=== PATIENT | female | born 1965 | race Caucasian/White ===

== ENCOUNTER → 2018-07-01 09:32 | Outpatient (CLI) | payer OTHER, SELFPAY ==
[2018-07-01 11:38] LABS: T4 14.2 ug/dL (4.5-12.5)
[2018-07-01 21:40] LABS: T3, Total 154 ng/dl (97-169)
== END ==
PROVIDERS: PCP Family Medicine; Visit Provider Family Medicine
DX: E03.9 Hypothyroidism, unspecified (principal)
CPT/HCPCS: 36415; 84436; 84480

== ENCOUNTER 2018-12-14 05:19 | Emergency (ER) | payer OTHER, SELFPAY ==
[2018-12-14 05:22] VITALS: BP 141/74; PULSE 75; RESP 20; TEMP 36.7; O2SAT 97
--- NOTE | 2018-12-14 05:41 | ED.GENADUL_ITS ---
Discharge Plan Disposition Patient Disposition: HOME Condition: Good Discharge Details Chief Complaint: RespSymp Clinical Impression: Migraine headache, RAD (reactive airway disease), Bronchitis Primary Care Provider: Donald Allen ED Provider: Bruno Carlson [place] Meds and New Rx's Prescriptions: New ProAir HFA 90 mcg/actuation HFA aerosol inhaler 2 puff IH Q4H PRN (Reason: shortness of breath or wheezing) Qty: 8.5 RF: 0 Continued ibuprofen 200 mg tablet 600 mg PO TID PRN (Reason: pain) Qty: 90 RF: 4 oxycodone 10 mg tablet 10 mg PO Q6H PRN MDD 40 mg 30 Days Qty: 110 RF: 0 doxycycline hyclate 100 mg tablet 100 mg PO BID PRN (Reason: bronchitis) Qty: 20 RF: 0 promethazine-codeine 6.25-10 mg/5 mL syrup 5 ml PO Q4H PRN Qty: 118 RF: 1 triamcinolone acetonide 15 GM cream 1 kait Topical BID RF: 0 Excedrin Extra Strength 1 EACH tablet 1 tab PO PRN RF: 0 Narcan 4 MG spray,non-aerosol 4 mg NS PRN Qty: 2 RF: 0 benzonatate 100 MG capsule 1 - 2 cap PO TID PRNQty: 30 RF: 1 levothyroxine 125 MCG tablet 125 mcg PO DAILY Qty: 90 RF: 4 diazepam [Valium] 2 mg tablet 1 mg PO TID Qty: 86 RF: 0 promethazine 25 mg tablet 25 mg PO Q6H PRN (Reason: nausea and vomiting) Qty: 30 RF: 3 baclofen 20 mg tablet 20 mg PO TID Qty: 90 RF: 3 acetaminophen [Tylenol] 325 MG tablet 650 mg PO PRN PRNRF: 0 Discharge Instructions Instructions: Acute Bronchitis (ED), Reactive Airways Disease (ED) Additional Instructions: Your chest x-ray is clear, there is no evidence of pneumonia. You should finish the doxycycline that has been started. May continue to use cough medicine as needed. Try the inhaler with spacer for cough and shortness of breath every 4-6 hours. Rest today and drink plenty of fluids to help with your headache. Follow-up with primary care next week for recheck. Return to ED for high fever, increasing difficulty breathing, chest pain, neurologic changes, persistent vomiting. Referrals: Donald Allen MD [Primary Care Provider] - Medical Decision Making Patient presenting with complaints of cough and shortness of breath as well as a migraine headache with nausea and vomiting. She has multiple allergies. She reports not being in an ER for migraines previously. Has pain medication at home that she typically uses. She has some wheezing scattered throughout her lungs. She has some rhonchi in the bases. She is a smoker. We will give DuoNeb treatment for her shortness of breath and cough. Will obtain chest x-ray to evaluate for pneumonia. In regards to her headache will place IV and give a liter of LR as well as Compazine which hopefully will help with a headache in the nausea and vomiting. She denies having any chest pain. She denies any abdominal pain. No labs at this point. Patient reports some relief with the DuoNeb. The wheezing that have been present is resolved. Still a few rhonchi. She is able to take deep breaths easier. Her chest x-ray per my review as well as preliminary radiology read is negative. She will finish the doxycycline she had been started on. We will give her an albuterol inhaler with spacer to use every 4-6 hours for cough and shortness of breath. We will hold off on steroids at this point. She does not have a previous history of asthma or COPD, although she is a smoker. Patient's nausea and vomiting has resolved. She still complains of a headache, however, she is no longer holding her head nor does she have her eyes shielded. Reports that she would take her oxycodone that she has at home if she was at home. I did review her prescriptions and she does indeed get oxycodone prescrib ed. We will give her a dose here. We will plan on discharge home to follow-up with her primary care next week. Return to ED for increasing shortness of breath, fever, chest pain, neurologic changes. HPI General Mode of arrival: ambulatory . Date/Time Provider Initiated Documentation: 12/14/18 05:33 . Limitations to Documentation: no limitations . Information obtained by: patient . HPI Narrative: Patient here with complaints of cough and shortness of breath as well as migraine headache with nausea and vomiting. Patient reports becoming ill over a week ago with congestion and cough. Seen by primary care on of last week and started on doxycycline. Reports that she feels like she is getting worse in terms of breathing. She feels short of breath and continues to have cough. She denies having chest pain. She denies having fever at any time. She has no body aches. She has chronic back pain. She has migraine headaches which she developed last night with associated dizziness, photophobia and nausea and vomiting, typical for her. She has no other neurologic complaints. She has no abdominal pain. She reports vomiting about 6 or 7 times since last night. She had difficulty sleeping because of the cough and shortness of breath. Related Data Home Medications Medication Instructions Recorded Confirmed Excedrin Extra Strength 1 tab PO PRN 02/28/13 12/14/18 triamcinolone acetonide 1 kait TOPICAL BID 02/28/13 12/14/18 acetaminophen [Tylenol] 650 mg PO PRN PRN 04/20/16 12/14/18 Narcan 4 mg NS PRN #2 spray 05/27/17 12/14/18 benzonatate 1 - 2 cap PO TID PRN #30 tab-cap 02/01/18 12/14/18 levothyroxine 125 mcg PO DAILY #90 tab-cap 06/02/18 12/14/18 ibuprofen 200 mg tablet 600 mg PO TID PRN #90 tab 09/27/18 12/14/18 oxycodone 10 mg tablet 10 mg PO Q6H PRN 30 Days #110 09/28/18 12/14/18 tab-cap MDD 40 mg diazepam 2 mg tablet 1 mg PO TID #86 tab 10/21/18 12/14/18 promethazine 25 mg tablet 25 mg PO Q6H PRN #30 tab 11/16/18 12/14/18 baclofen 20 mg tablet 20 mg PO TID #90 tab-cap 12/05/18 12/14/18 doxycycline hyclate 100 mg tablet 100 mg PO BID PRN #20 tab 12/08/18 12/14/18 promethazine 6.25 mg-codeine 10 5 ml PO Q4H PRN #118 ml 12/08/18 12/14/18 mg/5 mL syrup albuterol sulfate [ProAir HFA] 2 puff IH Q4H PRN #8.5 gm 12/14/18 Previous Rx's Medication Instructions Recorded levothyroxine 125 mcg PO DAILY #90 tab-cap 06/02/18 ibuprofen 200 mg tablet 600 mg PO TID PRN #90 tab 09/27/18 oxycodone 10 mg tablet 10 mg PO Q6H PRN 30 Days #110 09/28/18 tab-cap MDD 40 mg diazepam 2 mg tablet 1 mg PO TID #86 tab 10/21/18 promethazine 25 mg tablet 25 mg PO Q6H PRN #30 tab 11/16/18 baclofen 20 mg tablet 20 mg PO TID #90 tab-cap 12/05/18 doxycycline hyclate 100 mg tablet 100 mg PO BID PRN #20 tab 12/08/18 promethazine 6.25 mg-codeine 10 5 ml PO Q4H PRN #118 ml 12/08/18 mg/5 mL syrup albuterol sulfate [ProAir HFA] 2 puff IH Q4H PRN #8.5 gm 12/14/18 Allergies Allergy/AdvReac Type Severity Reaction Status Date / Time Penicillins Allergy Severe Anaphylaxsi Unverified 12/14/18 05:27 s adhesive Allergy Intermediate CAUSES Unverified 12/14/18 05:27 BLISTERS Sulfa (Sulfonamide Allergy Unknown GI UPSET; Unverified 12/14/18 05:27 Antibiotics) RASH levofloxacin [From Levaquin] Allergy Other (See Unverified 12/14/18 05:34 Comment) duloxetine AdvReac Severe INCREASED Unverified 12/14/18 05:27 DEPRESSION; INCREASED ANXIETY paroxetine AdvReac Severe Extreme Unverified 12/14/18 05:27 irritability diphenhydramine AdvReac Intermediate MAKES Unverified 12/14/18 05:27 HEART RACE doxylamine AdvReac Intermediate RESTLESSNES Unverified 12/14/18 05:27 S pseudoephedrine AdvReac Intermediate RESTLESSNES Unverified 12/14/18 05:27 S codeine AdvReac Unknown URTICARIA; Unverified 12/14/18 05:27 TACHYCARDIA ketorolac AdvReac Unknown Unverified 12/14/18 05:27 dextromethorphan AdvReac RESTLESSNES Unverified 12/14/18 05:27 S General Stated Complaint: RespSymp ZEV: 3 Review of Systems Constitutional Denies body ache(s), Denies chills, Reports fatigue, Denies fever(s), Reports headache(s), Reports malaise, Denies poor appetite and Denies weakness Eyes Denies change in vision, Denies eye discharge, Denies loss of vision, Denies eye pain and Reports photophobia ENT Reports dizziness, Denies otalgia, Reports headache(s), Reports hoarseness, Reports nasal congestion, Denies neck pain, Reports sinus pressure and Denies sore throat Cardiovascular Denies chest pain, Denies diaphoresis, Denies syncope, Denies edema, Denies lightheadedness and Reports dyspnea Respiratory Reports chest congestion, Reports cough and Reports dyspnea Gastrointestinal Denies abdominal pain, Denies diarrhea, Reports nausea and Reports vomiting Genitourinary Denies dysuria and Denies pelvic pain Musculoskeletal Denies abnormal gait, Reports back pain, Denies myalgias, Denies neck pain and Denies numbness Integumentary/Breasts Denies rash Neurologic Denies abnormal speech, Denies abnormal gait, Denies confusion, Reports dizziness, Denies syncope, Reports headache(s), Denies focal weakness, Denies loss of vision, Denies numbness, Denies paresthesias and Denies weakness Psychiatric Denies confusion Endocrine Reports fatigue [facility] Medical History Panic disorder (Chronic 02/19/17) Kidney stone (Inactive) Hypothyroidism (Chronic) Depressive disorder (Chronic) Chronic pain syndrome (Chronic) Migraine (Chronic) Palpitations (Chronic) Surgical History Appendectomy (Inactive) section (Inactive) Hysterectomy, Laproscopic (Inactive ~06/2008) Oophrectomy, Both (Inactive ~10/2008) Tonsillectomy (Inactive) Social History Smoking/Tobacco Use Status: Current every day Exam Const General: uncomfortable Orientation: alert and oriented x3 HENMT Head: normocephalic and atraumatic Ears: external ears normal and TM's normal bilaterally General nose exam: no nasal discharge Mouth: oropharynx normal and moist mucous membranes Throat: posterior oropharynx normal Eyes Pupils: PERRL EOM: EOM intact bilaterally Neck Neck: trachea midline and supple Resp Effort & Inspection: normal respiratory effort and not tachypneic Auscultation: rhonchi lower bilaterally and wheezes scattered wheezes Cardio Rate: regular rate Rhythm: regular rhythm Heart Sounds: S1 normal and S2 normal Pulses: radial pulses present Skin General skin exam: no rashes or lesions noted Neuro General: alert, oriented x3, gait normal, moves all extremities, no focal motor deficits and CN's II-XI intact bilaterally Extrem General: normal to inspection and full ROM Course Vital Signs Temperature 98.1 F 12/14/18 05:22 Pulse 75 12/14/18 05:22 Respiratory Rate 20 12/14/18 05:22 Blood Pressure 141/74 H 12/14/18 05:22 Pulse Oximetry 97 12/14/18 05:22 Temperature 98.1 F 12/14/18 05:22 Temperature Source Skin 12/14/18 05:22 Pulse 75 12/14/18 05:22 Respiratory Rate 20 12/14/18 05:22 Respiratory Effort 12/14/18 05:37 Respiratory Depth Normal 12/14/18 05:37 Blood Pressure 141/74 H 12/14/18 05:22 Blood Pressure Position Sitting 12/14/18 05:22 Pulse Oximetry 97 12/14/18 05:22 Oxygen Delivery Method Room Air 12/14/18 05:22 Oxygen Flow Rate 0 12/14/18 05:22 Pain Level 8 12/14/18 05:22
[2018-12-14] MEDS: Prochlorperazine 10 MG/2 ML VIAL IVP (05:54)
[2018-12-14] MEDS: Lactated Ringers 1,000 ML 1000 ML IV (05:55)
[2018-12-14] MEDS: Albuterol/Ipratropium 3 ML UPD VIAL UPD (05:57)
--- NOTE | 2018-12-14 06:20 | DI.RAD_ITS ---
SYMPTOM/DIAGNOSIS: COUGH,SOB PA AND LATERAL CHEST: The heart is normal in size. The lungs are clear. The mediastinal structures and pleura appear intact. CONCLUSION: Normal chest.
--- NOTE | 2018-12-14 06:27 | DI.VRAD_ITS ---
EXAM: XR Chest, 2 Views EXAM DATE/TIME: 12/14/2018 5:52 AM CLINICAL HISTORY: 53 years old, female; Signs and symptoms; Cough and shortness of breath; Patient HX: Cough and SOB for a week and a half. Treated with antibiotics but not any better. TECHNIQUE: XR of the chest, 2 views. COMPARISON: CR CHEST 2 VIEWS PA,LAT 12/04/2016 12:50 PM FINDINGS: Lungs: Unremarkable. No consolidation. Pleural space: Unremarkable. No pleural effusion. No pneumothorax. Heart/Mediastinum: Unremarkable. No cardiomegaly. Bones/joints: Unremarkable. IMPRESSION: No acute findings. Dictated and Authenticated by: Carmine Gonzales MD. Ordering:BERENICE Carr MD
[2018-12-14 06:29] VITALS: BP 120/60; PULSE 72; RESP 18; TEMP 37; O2SAT 99
[2018-12-14] MEDS: Albuterol HFA 8 GM 60 PUFF INH IH (06:52)
[2018-12-14] MEDS: oxyCODONE 10 MG TAB PO (06:52)
== END 2018-12-14 07:04 | disposition home or self-care (01) ==
PROVIDERS: Emergency Provider Emergency Medicine; PCP Family Medicine
DX: G43.909 Migraine, unspecified, not intractable, without status migrainosus (principal); J45.909 Unspecified asthma, uncomplicated
CPT/HCPCS: 96361; 96374; 99284; 71046; J0780; J7620

== ENCOUNTER 2018-12-18 18:41 | Emergency (ER) | payer OTHER, SELFPAY ==
[2018-12-18] VITALS (17 sets, daily range): BP systolic 126–143; BP diastolic 69–84; PULSE 67–90; RESP 13–24; TEMP 37–37.2; O2SAT 91–98
--- NOTE | 2018-12-18 19:14 | ED.GENADUL_ITS ---
Discharge Plan Disposition Patient Disposition: HOME Condition: Improving Discharge Details Chief Complaint: Palpitatns Clinical Impression: Palpitations Primary Care Provider: Donald Allen ED Provider: Carmine Dnun Home Meds and New Rx's Prescriptions: New dexamethasone [Decadron] 4 mg tablet 8 mg PO DAILY AM Qty: 4 RF: 0 No Action ibuprofen 200 mg tablet 600 mg PO TID PRN (Reason: pain) Qty: 90 RF: 4 promethazine-codeine 6.25-10 mg/5 mL syrup See Rx Instructions PO Q4H PRN Qty: 180 RF: 1 oxycodone 10 mg tablet 10 mg PO Q6H PRN MDD 40 mg Qty: 107 RF: 0 Excedrin Extra Strength 1 EACH tablet 1 tab PO PRN RF: 0 benzonatate 100 MG capsule 1 - 2 cap PO TID PRNQty: 30 RF: 1 levothyroxine 125 MCG tablet 125 mcg PO DAILY Qty: 90 RF: 4 diazepam [Valium] 2 mg tablet 1 mg PO TID Qty: 86 RF: 0 promethazine 25 mg tablet 25 mg PO Q6H PRN (Reason: nausea and vomiting) Qty: 30 RF: 3 acetaminophen [Tylenol] 325 MG tablet 650 mg PO PRN PRNRF: 0 ProAir HFA 90 mcg/actuation HFA aerosol inhaler 2 puff IH Q4H PRN (Reason: shortness of breath or wheezing) Qty: 8.5 RF: 0 Discharge Instructions Instructions: Palpitations (ED) Additional Instructions: 1. Drink plenty of fluids. 2. Continue all medications as prescribed. 3. Acetaminophen 1000mg every 4 hours (up to 5 time a day) and/or ibuprofen 600mg every 6 hours as needed for fever or pain. 4. Decadron 8 mg once a day for 2 days starting tomorrow 5. Ranitidine 300 mg at bedtime.. Mylanta 30 cc every 6 hours as needed. Return to the Emergency Department (ED) if your condition worsens, does not improve as expected, or for ANY other concerns. Specifically, return if you have new or uncontrolled pain, worsening fever, difficulty breathing, vomiting, or are unable to drink fluids. Referrals: Donald Allen MD [Primary Care Provider] - Medical Decision Making 53-year-old with a recent management of bronchitis resents after developing palpitations and presyncope after using albuterol. Reports recurrent difficulty with albuterol since her discharge from the emergency department here, sliding episodes of palpitations/anxiety. In no distress on arrival with occasional PVCs on telemetry. Normal exam except for mild epigastric tenderness. Epigastric outpatient subjectively worsens dyspnea. Clinically improved after receiving oral antacids and oral Decadron. Discharged with a prescription for Decadron and a plan for regular oral antacid use and minimal albuterol use. Given usual and customary return instructions prior to discharge. Medical Records Medical records reviewed: Yes I reviewed the patient's medical records. ECG Data Attestation: I personally reviewed and interpreted this ECG (s) as follows: Prior ECG tracings: available for review Interpretation: rhythm strip w nl NSR, occational pvcs/ HPI General Mode of arrival: ambulatory . Date/Time Provider Initiated Documentation: 12/18/18 19:10 . Limitations to Documentation: no limitations . Information obtained by: patient and family . HPI Narrative: 53-year-old woman with a history of renal colic, hypothyroidism, depression, chronic pain syndrome, and palpitations. Recently evaluated here for dyspnea and diagnosed with bronchitis. Evaluation management included negative chest xr and treatment with albuterol. She notes that since her discharge, she has been poorly tolerating albuterol with episodes of palpitations/anxiety associated with its use. She presents this evening after having an episode of palpitations/br adycardia associated with using 2 puffs of albuterol. On arrival, she is clinically improved with resolution of palpitations and notes mild improvement in her breathing. She denies fever/chills, significant chest pain, epigastric pain, reflux, generalized abdominal pain. She has had no recent change in bowel habits, melena, hematochezia. She denies urinary symptoms. She has had no atypical lower extremity pain or swelling and denies a history of VTE Related Data Home Medications Medication Instructions Recorded Confirmed Excedrin Extra Strength 1 tab PO PRN 02/28/13 12/18/18 acetaminophen [Tylenol] 650 mg PO PRN PRN 04/20/16 12/18/18 benzonatate 1 - 2 cap PO TID PRN #30 tab-cap 02/01/18 12/18/18 levothyroxine 125 mcg PO DAILY #90 tab-cap 06/02/18 12/18/18 ibuprofen 200 mg tablet 600 mg PO TID PRN #90 tab 09/27/18 12/18/18 diazepam 2 mg tablet 1 mg PO TID #86 tab 10/21/18 12/18/18 promethazine 25 mg tablet 25 mg PO Q6H PRN #30 tab 11/16/18 12/18/18 albuterol sulfate [ProAir HFA] 2 puff IH Q4H PRN #8.5 gm 12/14/18 12/18/18 oxycodone 10 mg tablet 10 mg PO Q6H PRN #107 tab-cap MDD 12/16/18 12/18/18 40 mg promethazine 6.25 mg-codeine 10 See Rx Instructions PO Q4H PRN 12/16/18 12/18/18 mg/5 mL syrup #180 ml dexamethasone [Decadron] 8 mg PO DAILY AM #4 tab 12/18/18 Previous Rx's Medication Instructions Recorded levothyroxine 125 mcg PO DAILY #90 tab-cap 06/02/18 ibuprofen 200 mg tablet 600 mg PO TID PRN #90 tab 09/27/18 diazepam 2 mg tablet 1 mg PO TID #86 tab 10/21/18 promethazine 25 mg tablet 25 mg PO Q6H PRN #30 tab 11/16/18 albuterol sulfate [ProAir HFA] 2 puff IH Q4H PRN #8.5 gm 12/14/18 oxycodone 10 mg tablet 10 mg PO Q6H PRN #107 tab-cap MDD 12/16/18 40 mg promethazine 6.25 mg-codeine 10 See Rx Instructions PO Q4H PRN 12/16/18 mg/5 mL syrup #180 ml dexamethasone [Decadron] 8 mg PO DAILY AM #4 tab 12/18/18 Allergies Allergy/AdvReac Type Severity Reaction Status Date / Time Penicillins Allergy Severe Anaphylaxsi Unverified 12/18/18 18:54 s adhesive Allergy Intermediate CAUSES Unverified 12/18/18 18:54 BLISTERS Sulfa (Sulfonamide Allergy Unknown GI UPSET; Unverified 12/18/18 18:54 Antibiotics) RASH levofloxacin [From Levaquin] Allergy Other (See Unverified 12/18/18 18:54 Comment) duloxetine AdvReac Severe INCREASED Unverified 12/18/18 18:54 DEPRESSION; INCREASED ANXIETY paroxetine AdvReac Severe Extreme Unverified 12/18/18 18:54 irritability albuterol AdvReac Intermediate anxiety/heart Unverified 12/18/18 18:54 racing diphenhydramine AdvReac Intermediate MAKES Unverified 12/18/18 18:54 HEART RACE doxylamine AdvReac Intermediate RESTLESSNES Unverified 12/18/18 18:54 S pseudoephedrine AdvReac Intermediate RESTLESSNES Unverified 12/18/18 18:54 S codeine AdvReac Unknown URTICARIA; Unverified 12/18/18 18:54 TACHYCARDIA ketorolac AdvReac Unknown Unverified 12/18/18 18:54 dextromethorphan AdvReac RESTLESSNES Unverified 12/18/18 18:54 S General Stated Complaint: Palpitatns ZEV: 2 Review of Systems Constitutional Denies chills, Denies fever(s), Denies headache(s) and Denies weakness Eyes Denies change in vision ENT Denies headache(s), Denies neck pain, Denies sore throat and Denies throat swelling Cardiovascular Denies chest pain, Denies diaphoresis, Denies leg edema, Reports palpitations and Reports dyspnea Respiratory Denies cough and Reports dyspnea Gastrointestinal Denies abdominal pain, Denies melena, Denies nausea and Denies vomiting Genitourinary Denies urinary frequency, Denies difficulty voiding, Denies dysuria and Denies flank pain Musculoskeletal Denies back pain, Denies myalgias, Denies neck pain and Denies numbness Integumentary/Breasts Denies rash and Denies wounds Neurologic Denies confusion, Denies headache(s), Denies focal weakness, Denies numbness and Denies weakness Psychiatric Denies confusion Endocrine Reports palpitations Hematologic/Lymphatic Denies easy bleeding and Denies easy bruising Allergic/Immunologic Denies throat swelling [facility] Medical History Panic disorder (Chronic 02/19/17) Kidney stone (Inactive) Hypothyroidism (Chronic) Depressive disorder (Chronic) Chronic pain syndrome (Chronic) Palpitations (Chronic) Surgical History Appendectomy (Inactive) section (Inactive) Hysterectomy, Laproscopic (Inactive ~06/2008) Oophrectomy, Both (Inactive ~10/2008) Tonsillectomy (Inactive) Social History Smoking/Tobacco Use Status: Current every day Exam Narrative Exam Narrative: Nursing note and vital signs have been reviewed and noted. GENERAL: alert, active, no acute distress, well -hydrated, well-nourished HEENT: atraumatic/normocephalic, PERRLA, EOMI, conjunctiva clear, external ears/canals normal, nasal mucosa normal NECK: supple, full range of motion, no mass, normal lymphadenopathy, no thyromegaly CARDIOVASCULAR: RRR, no murmurs, nl pulses, no edema PULMONARY: nl effort, no audible wheezing or stridor, nl breath sounds with no focal deficit. no chest wall tenderness ABDOMEN: soft, mild epigastric tenderness (palpation worsens subjective chest pain/dyspnea) , non-distended, no mass, no organomegaly EXTREMITY: normal muscle tone, all joints with FROM, no deformity or tenderness NUERO: gross motor exam normal, normal stance and gait, PSYCH: alert and oriented, Course Vital Signs Pulse Oximetry 97 12/18/18 18:40 Temperature 99.0 F 12/18/18 18:46 Temperature Source Skin 12/18/18 18:46 Pulse 72 12/18/18 19:01 Pulse 82 12/18/18 19:01 Respiratory Rate 18 12/18/18 19:01 Respiratory Effort 12/18/18 18:50 Blood Pressure 137/69 12/18/18 19:01 Blood Pressure Mean 87 12/18/18 19:01 Pulse Oximetry 93 L 12/18/18 19:01 Oxygen Delivery Method Room Air 12/18/18 18:46 Oxygen Flow Rate 0 12/18/18 18:46 Pain Level 0 12/18/18 18:46
[2018-12-18] MEDS: Mylanta Suspension 30 ML CUP PO (19:25)
[2018-12-18] MEDS: Dexamethasone 4 MG TAB 8 MG PO (19:25)
== END 2018-12-18 20:20 | disposition home or self-care (01) ==
PROVIDERS: Emergency Provider Emergency Medicine; PCP Family Medicine
DX: R00.2 Palpitations (principal); R10.13 Epigastric pain
CPT/HCPCS: 36415; 93005; 99284; 93010; J8540

== ENCOUNTER 2019-04-07 07:59 | Emergency (ER) | payer OTHER, SELFPAY ==
[2019-04-07 08:04] VITALS: BP 139/72; PULSE 92; RESP 16; TEMP 36.9; O2SAT 98
[2019-04-07] MEDS: Normal Saline 1,000 ML 1000 ML IV (08:25)
[2019-04-07] MEDS: Dexamethasone 10 MG/ML VIAL IVP (08:25)
[2019-04-07] MEDS: Prochlorperazine 10 MG/2 ML VIAL IVP (08:25)
--- NOTE | 2019-04-07 08:34 | ED.GENADUL_ITS ---
Discharge Plan Disposition Patient Disposition: HOME Condition: Improving Discharge Details Chief Complaint: Headache Clinical Impression: Migraine without aura and with status migrainosus, not intractable Primary Care Provider: Donald Allen ED Provider: Jesusita Vera Home Meds and New Rx's Prescriptions: Continued ibuprofen 200 mg tablet 600 mg PO TID PRN (Reason: pain) Qty: 90 RF: 4 levothyroxine 125 mcg tablet 125 mcg PO DAILY Qty: 90 RF: 4 Excedrin Extra Strength 1 EACH tablet 1 tab PO PRN RF: 0 diazepam [Valium] 2 mg tablet 1 mg PO TID Qty: 84 RF: 0 promethazine 25 mg tablet 25 mg PO Q6H PRN (Reason: nausea and vomiting) Qty: 30 RF: 3 acetaminophen [Tylenol] 325 MG tablet 650 mg PO PRN PRNRF: 0 Discharge Instructions Instructions: Migraine Headache (ED) Additional Instructions: Encourage hydration. Continue to use your typical migraine regimen. Please follow-up with your primary care to discuss breakthrough migraine. If you develop fever/chills, increased pain, visual change, weakness or other new/worsening symptoms please seek care urgently once again Stand Alone Forms: Work Release Referrals: Donald Allen MD [Primary Care Provider] - Discharge Data Discharge Date/Time-TO BE ENTERED AT DEPARTURE: 04/07/19 09:57 Medical Decision Making Patient is a 53-year-old female presents today with chief complaint of migraine. Patient reports she had a history of migraines, this is been diagnosed and confirmed by neurologist. States that typically she uses Excedrin Migraine at the onset of symptoms which works well for her. She reports that symptoms began 2 days ago while watching TV. Reports that it was a gradual onset. Has been trying to use Excedrin Migraine as well as promethazine without relief of her symptoms. States that otherwise, this is very similar to previous migraines. She has had increased stress recently with a recent passer of her mother. She denies any fevers or chills. No nuchal rigidity on exam. She states that the pain is primarily frontal. Is endorsing photophobia but no phonophobia. States that she has had nausea and vomiting. Last vomited last night. No hematemesis. On exam, the patient is appears to be resting in no acute distress. Neurologic exam is intact. Normal neuro and cardiovascular exam. No rash noted. Patient slightly tachycardia at 92, vital signs otherwise normal. Patient has history of depression, hypothyroidism, migraines, nephrolithiasis. Patient is allergic to Toradol, Benadryl. She has received Compazine in the past with good results on chart review. Plan to give dexamethasone and Compazine and rehydrate the patient. Patient became anxious after nursing staff gave medication, too soon to be reaction. She reports this is associated with her history of having reactions to so many medications. Given 1mg Ativan. Appears much improved, resting comfortably. Still receiving hydration. Patient feeling much improved, continues to endorse fatigue. Will go home and rest. We discussed new/worsening symptoms when to seek care urgently once again. Advise follow-up with primary care discussed breakthrough migraines. All of her questions and concerns were addressed and she is in agreement with this plan. HPI General Mode of arrival: ambulatory . Date/Time Provider Initiated Documentation: 04/07/19 08:02 . Limitations to Documentation: no limitations . Information obtained by: patient, family (accompanied by multiple family members) and RN notes reviewed . History of Present Illness 53 year old F presents to the emergency department with the chief complaint of migraine, described as severe, Quality is described as stabbing, and is localized to the head. Patient reports no radiation. Patient started experiencing this day(s) (2) and it has been constant. No relieving factors improve symptom(s), No exacerbating factors reported . Patient notes headaches, loss of appetite and nausea/vomiting; denies chest pain, cough, diaphoresis, fever/chills, malaise, rash, seizure, shortness of breath, syncope and weakness. Patient did receive the following treatments prior to arrival, none Related Data Home Medications Medication Instructions Recorded Confirmed Excedrin Extra Strength 1 tab PO PRN 02/28/13 04/07/19 acetaminophen [Tylenol] 650 mg PO PRN PRN 04/20/16 04/07/19 ibuprofen 200 mg tablet 600 mg PO TID PRN #90 tab 09/27/18 04/07/19 diazepam 2 mg tablet 1 mg PO TID #84 tab 03/08/19 04/07/19 promethazine 25 mg tablet 25 mg PO Q6H PRN #30 tab 03/08/19 04/07/19 levothyroxine 125 mcg tablet 125 mcg PO DAILY #90 tab-cap 03/24/19 04/07/19 Previous Rx's Medication Instructions Recorded ibuprofen 200 mg tablet 600 mg PO TID PRN #90 tab 09/27/18 diazepam 2 mg tablet 1 mg PO TID #84 tab 03/08/19 promethazine 25 mg tablet 25 mg PO Q6H PRN #30 tab 03/08/19 levothyroxine 125 mcg tablet 125 mcg PO DAILY #90 tab-cap 03/24/19 Allergies Allergy/AdvReac Type Severity Reaction Status Date / Time Penicillins Allergy Severe Anaphylaxsi Unverified 04/07/19 08:09 s adhesive Allergy Intermediate CAUSES Unverified 04/07/19 08:09 BLISTERS Sulfa (Sulfonamide Allergy Unknown GI UPSET; Unverified 04/07/19 08:09 Antibiotics) RASH levofloxacin [From Levaquin] Allergy Other (See Unverified 04/07/19 08:09 Comment) duloxetine AdvReac Severe INCREASED Unverified 04/07/19 08:09 DEPRESSION; INCREASED ANXIETY paroxetine AdvReac Severe Extreme Unverified 04/07/19 08:09 irritability albuterol AdvReac Intermediate anxiety/heart Unverified 04/07/19 08:09 racing diphenhydramine AdvReac Intermediate MAKES Unverified 04/07/19 08:09 HEART RACE doxylamine AdvReac Intermediate RESTLESSNES Unverified 04/07/19 08:09 S pseudoephedrine AdvReac Intermediate RESTLESSNES Unverified 04/07/19 08:09 S codeine AdvReac Unknown URTICARIA; Unverified 04/07/19 08:09 TACHYCARDIA ketorolac AdvReac Unknown Unverified 04/07/19 08:09 dextromethorphan AdvReac RESTLESSNES Unverified 04/07/19 08:09 S General ZEV: 2 Review of Systems Constitutional Reports as per HPI, Denies chills, Reports fatigue, Denies fever(s), Denies frequent falls, Reports headache(s), Denies snoring and Denies weakness Eyes Reports as per HPI, Denies blurry vision, Denies change in vision and Reports photophobia ENT Denies vertigo, Reports headache(s) and Denies neck pain Cardiovascular Reports as per HPI, Denies chest pain, Denies lightheadedness, Denies radiating jaw, neck or arm pain, Denies dyspnea and Denies dyspnea on exertion Respiratory Reports as per HPI, Denies chest congestion, Denies cough, Denies dyspnea, Denies dyspnea on exertion, Denies snoring, Denies stridor and Denies wheezing Gastrointestinal Reports as per HPI, Denies abdominal pain, Denies change in bowel habits, Reports nausea and Reports vomiting Musculoskeletal Reports as per HPI, Denies back pain, Denies myalgias, Denies muscle cramps, Denies neck pain and Denies numbness Integumentary/Breasts Reports as per HPI and Denies rash Neurologic Reports as per HPI, Denies abnormal movements, Denies abnormal speech, Denies behavioral changes, Denies confusion, Denies vertigo, Denies frequent falls, Reports headache(s), Denies focal weakness, Denies numbness, Denies sensory deficit and Denies weakness Psychiatric Denies behavioral changes and Denies confusion Endocrine Reports fatigue Allergic/Immunologic Denies wheezing [facility] Medical History Panic disorder (Chronic 02/19/17) Kidney stone (Inactive) Hypothyroidism (Chronic) Depressive disorder (Chronic) Chronic pain syndrome (Chronic) Palpitations (Chronic) Surgical History Appendectomy (Inactive) section (Inactive) Hysterectomy, Laproscopic (Inactive ~06/2008) Oophrectomy, Both (Inactive ~10/2008) Tonsillectomy (Inactive) Social History Smoking/Tobacco Use Status: Current every day Tobacco Type: cigarettes Alcohol Intake: current Alcohol Intake frequency: holidays/special occasions only Drug use: Never Do you feel safe at home: Yes Do you feel safe in your relationship?: Yes Exam Const General: cooperative, healthy appearing, uncomfortable, no acute distress, well developed and well groomed Nutritional Appearance: average body habitus and well nourished Orientation: alert, awake and oriented x3 HENMT Head: normal to inspection, no palpable skull fracture, normocephalic and atraumatic Ears: hearing grossly normal bilaterally, external ears normal and TM's normal bilaterally General nose exam: external nose normal Mouth: oral mucosae normal and moist mucous membranes Throat: posterior oropharynx normal Eyes General: appearance normal, both eyes and all related structures Alignment and Position: alignment normal Periorbital: periorbital findings normal Eyelids: eyelids normal Sclera: sclerae normal Cornea: corneas normal Pupils: PERRL EOM: EOM intact bilaterally Neck Neck: normal visual inspection, full ROM, no lymphadenopathy and no meningeal signs Resp Effort & Inspection: normal respiratory effort, able to speak in complete sentences and no respiratory distress Auscultation: clear to auscultation bilaterally, no rales, no rhonchi and no wheezes Cardio Rate: regular rate Rhythm: regular rhythm Heart Sounds: S1 normal and S2 normal GI Inspection: normal to inspection and non-distended Palpation: soft, no hepatosplenomegaly, not firm, no guarding, not rigid and nontender Percussion: normal to percussion Auscultation: normal bowel sounds Back/Spine/Pelvis Cervical Spine: normal cervical lordosis and cervical ROM normal Skin General skin exam: no rashes or lesions noted Neuro General: alert, awake and oriented x3 Cranial Nerves: CN's II-XI intact bilaterally Cognition: normal cognition Speech: speech normal Gait: normal gait Motor: muscle tone normal throughout, strength 5/5 throughout, no pronator drift, no movement abnormalities noted and no fasciculations Sensory Exam: no sensory deficits noted Coordination: [id number] test normal and [id number] test normal Extrem General: normal to inspection, normal capillary refill, no pedal edema and no calf tenderness Psych Appearance: grossly normal and well kempt Mental Status: mental status grossly normal Speech and Movement: speech and movement normal
[2019-04-07] MEDS: LORazepam 2 MG/ML VIAL (08:56)
[2019-04-07 09:56] VITALS: BP 123/97; PULSE 78; RESP 16; TEMP 36.9; O2SAT 98
== END 2019-04-07 09:57 | disposition home or self-care (01) ==
PROVIDERS: Emergency Provider Physician Assistant; PCP Family Medicine
DX: G43.001 Migraine without aura, not intractable, with status migrainosus (principal); R11.2 Nausea with vomiting, unspecified; R53.83 Other fatigue
CPT/HCPCS: 96361; 96374; 96375; 99284; J0780; J1100; J1200; J2060

== ENCOUNTER 2019-05-28 18:11 | Emergency (ER) | payer OTHER, SELFPAY ==
[2019-05-28 18:15] VITALS: BP 128/77; PULSE 98; RESP 16; TEMP 36.8; O2SAT 97
--- NOTE | 2019-05-28 18:18 | W.ED.GENAD ---
Discharge Plan Disposition Patient Disposition: HOME Condition: Fair Discharge Details Chief Complaint: DentalOral Clinical Impression: Abscess, dental Primary Care Provider: Donald Allen ED Provider: Jesusita Vera Home Meds and New Rx's Prescriptions: New clindamycin HCl 150 mg capsule 450 mg PO TID Qty: 57 RF: 0 Continued ibuprofen 200 mg tablet 600 mg PO TID PRN (Reason: pain) Qty: 90 RF: 4 levothyroxine 125 mcg tablet 125 mcg PO DAILY Qty: 90 RF: 4 Excedrin Extra Strength 1 EACH tablet 1 tab PO PRN RF: 0 oxycodone 10 mg tablet 10 mg PO Q6H MDD 4 tabs PRN (Reason: pain) Qty: 104 RF: 0 baclofen 20 mg tablet 20 mg PO TID PRN (Reason: muscle spasm) Qty: 90 RF: 3 diazepam [Valium] 2 mg tablet 1 mg PO TID Qty: 82 RF: 0 promethazine 25 mg tablet 25 mg PO Q6H PRN (Reason: nausea and vomiting) Qty: 30 RF: 3 acetaminophen [Tylenol] 325 MG tablet 650 mg PO PRN PRNRF: 0 Discharge Instructions Instructions: Clindamycin (By mouth), Dental Abscess (ED) Additional Instructions: Encourage hydration. He may continue with Tylenol and/or ibuprofen as needed for discomfort. Please take the clindamycin as prescribed, you will need to take 3 tablets 3 times daily for the next 7 days. Given your first dose here tonight, take the next dose in the morning. While on the antibiotic, please begin a probiotic, these are available at the pharmacy. You will need definitive care with a dentist, please call tomorrow to schedule appointment. If you develop fever/chills, increased pain, increased swelling or other new/worsening symptoms please seek care urgently once again. Referrals: Donald Allen MD [Primary Care Provider] - Discharge Data Discharge Date/Time-TO BE ENTERED AT DEPARTURE: 05/28/19 19:20 Medical Decision Making Patient is a 53 year old female presenting today, accompanied by , with c/c of dental pain. States that she began having pain over the #8 tooth 2-3 days ago, pain has been progressively worsening. Noted area of swelling yesterday which she palpated and easily opened. No fevers/chills. Has had multiple dental infections historically. None in this area. No POPE. Reprots worse with eating. On exam, focal swelling 1cm abscess that appears to have closed again. Nontoxic. Oral exam otherwise WNL. Patient and I discussed risks/benefits of I&D, she voices understanding and whishes to proceed. Procedure note: Area was anesthetized topically with hurricaine gel. This worked well. Area was then incised with 11 blade. Area expressed thick fluid. Discussed infection with patient. She will be placed on Clindamycin, will use probiotic while on this. Has tolerated this well historically. Discussed new/worsneing symptoms and when to seek care urgently once again. She has a dentist and is able to f/u for definitive care. Alll questions and cocnerns were addressed, she is in agreement with this plan. HPI General Mode of arrival: ambulatory. Date/Time Provider Initiated Documentation: 05/28/19 18:11. Limitations to Documentation: no limitations. Information obtained by: patient, family and RN notes reviewed. History of Present Illness 53 year old F presents to the emergency department with the chief complaint of right frontal tooth pain, described as moderate, with intensity rated at 6. Quality is described as stabbing, and is localized to the mouth. Patient reports no radiation. Patient started experiencing this day(s) (2) and it has been constant. No relieving factors improve symptom(s), Eating worsens symptoms . Patient notes loss of appetite (diminished secondary to pain with eating); denies cough, fever/chills, headaches, nausea/vomiting, rash and shortness of breath. Patient did receive the following treatments prior to arrival, none Related Data Home Medications Medication Instructions Recorded Confirmed Excedrin Extra Strength 1 tab PO PRN 02/28/13 05/28/19 acetaminophen [Tylenol] 650 mg PO PRN PRN 04/20/16 05/28/19 ibuprofen 200 mg tablet 600 mg PO TID PRN #90 tab 09/27/18 05/28/19 levothyroxine 125 mcg tablet 125 mcg PO DAILY #90 tab-cap 03/24/19 05/28/19 oxycodone 10 mg tablet 10 mg PO Q6H PRN #104 tab MDD 4 04/20/19 05/28/19 tabs baclofen 20 mg tablet 20 mg PO TID PRN #90 tab 05/23/19 05/28/19 diazepam 2 mg tablet 1 mg PO TID #82 tab 05/23/19 05/28/19 promethazine 25 mg tablet 25 mg PO Q6H PRN #30 tab 05/23/19 05/28/19 clindamycin HCl 450 mg PO TID #57 cap 05/28/19 Previous Rx's Medication Instructions Recorded ibuprofen 200 mg tablet 600 mg PO TID PRN #90 tab 09/27/18 levothyroxine 125 mcg tablet 125 mcg PO DAILY #90 tab-cap 03/24/19 oxycodone 10 mg tablet 10 mg PO Q6H PRN #104 tab MDD 4 04/20/19 tabs baclofen 20 mg tablet 20 mg PO TID PRN #90 tab 05/23/19 diazepam 2 mg tablet 1 mg PO TID #82 tab 05/23/19 promethazine 25 mg tablet 25 mg PO Q6H PRN #30 tab 05/23/19 clindamycin HCl 450 mg PO TID #57 cap 05/28/19 Allergies Allergy/AdvReac Type Severity Reaction Status Date / Time Penicillins Allergy Severe Anaphylaxsi Unverified 05/28/19 18:17 s adhesive Allergy Intermediate CAUSES Unverified 05/28/19 18:17 BLISTERS Sulfa (Sulfonamide Allergy Unknown GI UPSET; Unverified 05/28/19 18:17 Antibiotics) RASH levofloxacin [From Levaquin] Allergy Other (See Unverified 05/28/19 18:17 Comment) duloxetine AdvReac Severe INCREASED Unverified 05/28/19 18:17 DEPRESSION; INCREASED ANXIETY paroxetine AdvReac Severe Extreme Unverified 05/28/19 18:17 irritability albuterol AdvReac Intermediate anxiety/heart Unverified 05/28/19 18:17 racing diphenhydramine AdvReac Intermediate MAKES Unverified 05/28/19 18:17 HEART RACE doxylamine AdvReac Intermediate RESTLESSNES Unverified 05/28/19 18:17 S pseudoephedrine AdvReac Intermediate RESTLESSNES Unverified 05/28/19 18:17 S codeine AdvReac Unknown URTICARIA; Unverified 05/28/19 18:17 TACHYCARDIA ketorolac AdvReac Unknown Unverified 05/28/19 18:17 dextromethorphan AdvReac RESTLESSNES Unverified 05/28/19 18:17 S General Stated Complaint: DentalOral ZEV: 4 Review of Systems Constitutional Reports as per HPI, Denies chills, Denies fatigue, Denies fever(s), Denies headache(s) and Denies poor appetite Eyes Denies change in vision and Denies irritation ENT Reports as per HPI, Reports dental pain, Denies dysphagia, Denies dizziness, Denies dry mouth, Denies ear discharge, Denies otalgia, Reports facial pain, Denies headache(s), Denies hoarseness, Denies lip swelling, Denies nasal congestion, Denies odynophagia and Denies sore throat Cardiovascular Reports as per HPI and Denies chest pain Respiratory Reports as per HPI and Denies cough Gastrointestinal Reports as per HPI, Denies dysphagia, Denies nausea, Denies odynophagia and Denies vomiting Integumentary/Breasts Reports as per HPI, Denies erythema, Denies rash and Denies skin pain Neurologic Reports as per HPI, Denies dizziness and Denies headache(s) Endocrine Denies fatigue Allergic/Immunologic Denies lip swelling [facility] Medical History Chronic pain syndrome (Chronic) Depressive disorder (Chronic) Hypothyroidism (Chronic) Kidney stone (Inactive) Palpitations (Chronic) Panic disorder (Chronic 02/19/17) Surgical History (Updated 04/20/19 @ 16:40 by Donald Allen MD) Appendectomy (Inactive) section (Inactive) History of bilateral oophorectomy (Resolved) History of section (Resolved) Hysterectomy, Laproscopic (Inactive ~06/2008) Oophrectomy, Both (Inactive ~10/2008) Status post appendectomy (Resolved) Status post laparoscopic hysterectomy (Resolved) Status post tonsillectomy (Resolved) Tonsillectomy (Inactive) Social History Smoking/Tobacco Use Status: Current every day Tobacco Type: cigarettes Alcohol Intake: current Alcohol Intake frequency: holidays/special occasions only Drug use: Never Do you feel safe at home: Yes Do you feel safe in your relationship?: Yes Exam Const General: cooperative, healthy appearing, comfortable, no acute distress, well developed and well groomed Nutritional Appearance: average body habitus and well nourished Orientation: alert and awake [facility] Head: normal to inspection, normocephalic and atraumatic Ears: hearing grossly normal bilaterally, external ears normal and TM's normal bilaterally General nose exam: external nose normal and nares normal Face and sinus: normal facial exam, sinuses nontender and face symmetric Mouth: lip normal, tongue normal, no trismus and No restricted motion Teeth and gingiva: abnormal tooth or associated gingiva (#8 tooth abscess buccal surface 1cm diameter, scab anterior), caries and poor dentition Throat: posterior oropharynx normal, tonsils normal and uvula midline Eyes General: appearance normal, both eyes and all related structures Neck Neck: normal visual inspection, full ROM, no lymphadenopathy, supple and no anterior neck swelling Resp Effort & Inspection: normal respiratory effort, able to speak in complete sentences and no respiratory distress Auscultation: clear to auscultation bilaterally, no rales, no rhonchi and no wheezes Cardio Rate: regular rate Rhythm: regular rhythm Heart Sounds: S1 normal and S2 normal Skin General skin exam: no rashes or lesions noted Trauma: no lacerations or abrasions Neuro General: alert and awake Cognition: normal cognition Speech: speech normal Gait: normal gait Psych Appearance: grossly normal and well kempt Mental Status: mental status grossly normal Speech and Movement: speech and movement normal Course Vital Signs Temperature 36.8 C 05/28/19 18:15 Pulse 98 H 05/28/19 18:15 Respiratory Rate 16 05/28/19 18:15 Blood Pressure 128/77 05/28/19 18:15 Pulse Oximetry 97 05/28/19 18:15 Temperature 36.8 C 05/28/19 18:15 Temperature Source Skin 05/28/19 18:15 Pulse 98 H 05/28/19 18:15 Respiratory Rate 16 05/28/19 18:15 Respiratory Effort Non-Labored 05/28/19 18:15 Blood Pressure 128/77 05/28/19 18:15 Blood Pressure Position Sitting 05/28/19 18:15 Pulse Oximetry 97 05/28/19 18:15 Oxygen Delivery Method Room Air 05/28/19 18:15 Oxygen Flow Rate 0 05/28/19 18:15 Pain Level 6 05/28/19 18:15
--- NOTE | 2019-05-28 18:30 | NUR.NOTE ---
Nursing Note: katalina vazquez applies to site
[2019-05-28] MEDS: Clindamycin 150 MG CAP 450 MG PO ×2 (19:08→19:17)
[2019-05-28 19:18] VITALS: BP 128/77; PULSE 98; RESP 16; TEMP 36.8; O2SAT 97
[2019-05-28] MEDS: Clindamycin 150 MG CAP (19:18)
== END 2019-05-28 19:20 | disposition home or self-care (01) ==
PROVIDERS: Emergency Provider Physician Assistant; PCP Family Medicine
DX: K04.7 Periapical abscess without sinus (principal)
CPT/HCPCS: 10060; 99283

== ENCOUNTER 2019-06-05 00:34 | Outpatient (CLI) | payer OTHER, SELFPAY ==
--- NOTE | 2019-06-05 13:56 | DI.MAMMO_ITS ---
SYMPTOM/DIAGNOSIS: SCREENING, Z12.31 MAMMOGRAMS: Mammograms were interpreted according to the usual protocol including computer analysis with CAD system, tomosynthesis and C view imaging. Comparison is with the prior examinations. There is a biopsy clip again seen in the upper inner quadrant of the left breast. No suspicious masses or microcalcifications are seen. There has been no significant change compared to the prior examinations. IMPRESSION: No evidence for malignancy. Yearly mammography is recommended. Category 1, breast density C. MQSA ASSESSMENT OF FINDINGS: Negative. Category 1. Patient will receive a letter notifying them of these results. Bi-RADS category C. The breasts are heterogeneously dense, which may obscure small masses.
== END 2019-06-05 00:54 ==
PROVIDERS: PCP Family Medicine; Visit Provider Family Medicine
DX: Z12.31 Encounter for screening mammogram for malignant neoplasm of breast (principal)
CPT/HCPCS: 77063; 77067

== ENCOUNTER 2020-01-07 17:27 | Emergency (ER) | payer OTHER, SELFPAY ==
[2020-01-07 17:29] VITALS: BP 141/98; PULSE 106; RESP 16; TEMP 36.5; O2SAT 98
--- NOTE | 2020-01-07 17:49 | ED.GENADUL_ITS ---
Discharge Plan Disposition Patient Disposition: HOME Condition: Stable Discharge Details Chief Complaint: DentalOral Clinical Impression: Pain, dental Primary Care Provider: Donald Allen ED Provider: Barrett Yusuf Home Meds and New Rx's Prescriptions: New clindamycin HCl 300 mg capsule 300 mg PO Q8H 10 Days Qty: 30 RF: 0 Continued ibuprofen 200 mg tablet 600 mg PO TID PRN (Reason: pain) Qty: 90 RF: 4 levothyroxine 125 mcg tablet 125 mcg PO DAILY Qty: 90 RF: 4 vortioxetine 20 mg tablet 20 mg PO DAILY Qty: 30 RF: 2 Excedrin Extra Strength 1 EACH tablet 1 tab PO PRN RF: 0 baclofen 20 mg tablet 20 mg PO TID PRN (Reason: muscle spasm) Qty: 90 RF: 3 diazepam [Valium] 2 mg tablet 1 mg PO TID Qty: 78 RF: 0 acetaminophen [Tylenol] 325 MG tablet 650 mg PO PRN PRNRF: 0 promethazine 25 mg Tablet RF: 0 Discharge Instructions Instructions: Toothache (ED) Additional Instructions: Clindamycin as directed. [id number] Tylenol and/or Motrin as directed for discomfort. Warm compresses every 2 hours for 20 days. Please watch for new or worsening symptoms and return to the ER for any concerns. I would like you to reach out to a dentist tomorrow using the list provided for prompt outpatient dental follow-up Medical Decision Making 54-year-old female presents to the ER for less than 24-hour history of left upper dental discomfort associate with mild facial swelling. She has taken some [id number] medications. Patient appears well, nontoxic, no acute distress, afebrile. Airway is patent. She does request something for pain, I did offer a dental block but she declines. I explained her that I felt as though Tylenol and/or Motrin is most appropriate, no clear indication for narcotic medication. We will provide her with a prescription for clindamycin given her penicillin allergy. Will provide her with a single dose now and a tablet for her next dose in 8 hours, she can fill her prescription tomorrow. I have also given her the list of local dentist that she may get outpatient dental care. Encouraged to return to the ER for new or worsening symptoms Medical Records Medical records reviewed: Yes I reviewed the patient's medical records. HPI General Mode of arrival: ambulatory . Date/Time Provider Initiated Documentation: 01/07/20 17:27 . Limitations to Documentation: no limitations . Information obtained by: patient . HPI Narrative: 54-year-old female with a history of depression, fatigue, renal stones, hypothyroidism, migraines, panic disorder, smoker, chronic pain syndrome, presents with left upper dental discomfort over the past 24 hours. She denies any obvious injury or trauma. Reports that she has had similar dental infections in the past. She does not currently have a dentist. She reports the pain is moderate but did take [id number] medication with only minimal relief. She reports the pain radiates to her left ear but denies any fever, sore throat, cough, abdominal pain, nausea, vomiting, other symptoms. She reports a severe allergy to all penicillins Related Data Home Medications Medication Instructions Recorded Confirmed Excedrin Extra Strength 1 tab PO PRN 02/28/13 01/07/20 acetaminophen [Tylenol] 650 mg PO PRN PRN 04/20/16 11/02/19 ibuprofen 200 mg tablet 600 mg PO TID PRN #90 tab 09/27/18 01/07/20 levothyroxine 125 mcg tablet 125 mcg PO DAILY #90 tab-cap 03/24/19 01/07/20 vortioxetine 20 mg tablet 20 mg PO DAILY #30 tab 08/31/19 01/07/20 baclofen 20 mg tablet 20 mg PO TID PRN #90 tab 09/15/19 01/07/20 diazepam 2 mg tablet 1 mg PO TID #78 tab 11/14/19 01/07/20 clindamycin HCl 300 mg PO Q8H 10 Days #30 cap 01/07/20 promethazine 01/07/20 Previous Rx's Medication Instructions Recorded ibuprofen 200 mg tablet 600 mg PO TID PRN #90 tab 09/27/18 levothyroxine 125 mcg tablet 125 mcg PO DAILY #90 tab-cap 03/24/19 vortioxetine 20 mg tablet 20 mg PO DAILY #30 tab 08/31/19 baclofen 20 mg tablet 20 mg PO TID PRN #90 tab 09/15/19 diazepam 2 mg tablet 1 mg PO TID #78 tab 11/14/19 clindamycin HCl 300 mg PO Q8H 10 Days #30 cap 01/07/20 Allergies Allergy/AdvReac Type Severity Reaction Status Date / Time Penicillins Allergy Severe Anaphylaxsi Verified 01/07/20 17:32 s adhesive Allergy Intermediate CAUSES Verified 01/07/20 17:32 BLISTERS Sulfa (Sulfonamide Allergy Unknown GI UPSET; Verified 01/07/20 17:32 Antibiotics) RASH levofloxacin [From Levaquin] Allergy Other (See Verified 01/07/20 17:32 Comment) duloxetine AdvReac Severe INCREASED Verified 01/07/20 17:32 DEPRESSION; INCREASED ANXIETY paroxetine AdvReac Severe Extreme Verified 01/07/20 17:32 irritability albuterol AdvReac Intermediate anxiety/heart Verified 01/07/20 17:32 racing diphenhydramine AdvReac Intermediate MAKES Verified 01/07/20 17:32 HEART RACE doxylamine AdvReac Intermediate RESTLESSNES Verified 01/07/20 17:32 S pseudoephedrine AdvReac Intermediate RESTLESSNES Verified 01/07/20 17:32 S codeine AdvReac Unknown URTICARIA; Verified 01/07/20 17:32 TACHYCARDIA ketorolac AdvReac Unknown Verified 01/07/20 17:32 dextromethorphan AdvReac RESTLESSNES Verified 01/07/20 17:32 S General Stated Complaint: DentalOral ZEV: 4 Review of Systems Constitutional Constitutional: Denies fever(s) and Reports headache(s) (History of migraines, no pain now) Eyes Eyes: Denies eye discharge ENT Ears, Nose, Mouth, and Throat: Reports headache(s) (History of migraines, no pain now) and Reports mouth pain Cardiovascular Cardiovascular: Denies chest pain Respiratory Respiratory: Denies cough Gastrointestinal Gastrointestinal: Denies abdominal pain, Denies nausea and Denies vomiting Musculoskeletal Musculoskeletal: Reports back pain (Chronic) Integumentary/Breasts Skin/Breast: Denies rash Neurologic Neurologic: Reports headache(s) (History of migraines, no pain now) FORMERLY [facility], [facility]–1983 Medical History Chronic pain syndrome (Chronic) 02/17/17-controlled substance agreement approved for 3 months (05/19/17) 05/27/17- CONTROLLED SUBSTANCE AGREEMENT RENEWED Depressive disorder (Chronic) Hypothyroidism (Chronic) Kidney stone (Inactive) H/O lithotripsy Palpitations (Chronic) Panic disorder (Chronic 02/19/17) Surgical History Appendectomy (Inactive) section (Inactive) History of bilateral oophorectomy (Resolved) History of section (Resolved) Hysterectomy, Laproscopic (Inactive ~06/2008) Oophrectomy, Both (Inactive ~10/2008) Status post appendectomy (Resolved) Status post laparoscopic hysterectomy (Resolved) Status post tonsillectomy (Resolved) Tonsillectomy (Inactive) Social History Smoking/Tobacco Use Status: Current every day Tobacco Type: cigarettes Alcohol Intake: current Alcohol Intake frequency: holidays/special occasions only Drug use: Never Do you feel safe at home: Yes Do you feel safe in your relationship?: Yes Exam Const General: cooperative, healthy appearing, comfortable and no acute distress Orientation: alert and awake HENMT Head: normal to inspection, normocephalic and atraumatic Ears: external ears normal, TM's normal bilaterally and EAC's normal Face and sinus: tenderness (Mild swelling and discomfort externally at tooth 12, no pointing abscess) Mouth: moist mucous membranes Teeth and gingiva: gingiva normal, caries, poor dentition and other (Discomfort to tooth 12, no bucca mucosa swelling or pointing abscess) Eyes Conjunctivae: conjunctivae normal Neck Neck: normal visual inspection, trachea midline and supple Resp Effort & Inspection: normal respiratory effort and able to speak in complete sentences Cardio Rate: regular rate Rhythm: regular rhythm Skin General skin exam: no rashes or lesions noted Neuro General: alert, awake, moves all extremities and no focal motor deficits Sensory Exam: no sensory deficits noted Psych Appearance: grossly normal Mental Status: mental status grossly normal Course Vital Signs Vital signs: Vital Signs Temperature 36.5 C 01/07/20 17:29 Pulse 106 H 01/07/20 17:29 Respiratory Rate 16 01/07/20 17:29 Blood Pressure 141/98 H 01/07/20 17:29 Pulse Oximetry 98 01/07/20 17:29 Temperature 36.5 C 01/07/20 17:29 Temperature Source Temporal Artery Scan 01/07/20 17:29 Pulse 106 H 01/07/20 17:29 Respiratory Rate 16 01/07/20 17:29 Respiratory Effort 01/07/20 17:36 Blood Pressure 141/98 H 01/07/20 17:29 Pulse Oximetry 98 01/07/20 17:29 Oxygen Delivery Method Room Air 01/07/20 17:29 Oxygen Flow Rate 0 01/07/20 17:29 Pain Level 10 01/07/20 17:36
[2020-01-07] MEDS: Clindamycin 300 MG CAP PO ×2 (18:03)
== END 2020-01-07 18:10 | disposition home or self-care (01) ==
PROVIDERS: Emergency Provider Physician Assistant; PCP Family Medicine
DX: K08.89 Other specified disorders of teeth and supporting structures (principal); Z88.0 Allergy status to penicillin
CPT/HCPCS: 99283

== ENCOUNTER 2020-01-17 04:45 | Emergency (ER) | payer OTHER, SELFPAY ==
[2020-01-17 04:54] VITALS: BP 124/51; PULSE 102; RESP 16; TEMP 36.8; O2SAT 100
--- NOTE | 2020-01-17 05:04 | NUR.NOTE ---
Nursing Note:when inquiring about meds and allergies pt stated whatever is in there is accurate
--- NOTE | 2020-01-17 05:10 | ED.GENADUL_ITS ---
Discharge Plan Disposition Patient Disposition: HOME Condition: Good Discharge Details Chief Complaint: Nausea/Vomit/Diar Clinical Impression: Viral illness Primary Care Provider: Donald Allen ED Provider: Bruno Carlson [place] Meds and New Rx's Prescriptions: New Ondansetron Odt, 3 Tabs/Btl [Zofran Odt, 3 Tabs/Btl] 4 mg PO TID PRN PRNQty: 0 RF: 0 Continued ibuprofen 200 mg tablet 600 mg PO TID PRN (Reason: pain) Qty: 90 RF: 4 levothyroxine 125 mcg tablet 125 mcg PO DAILY Qty: 90 RF: 4 oxycodone 10 mg tablet 10 mg PO Q6H MDD 4 tabs PRN (Reason: pain) Qty: 94 RF: 0 promethazine-codeine 6.25-10 mg/5 mL syrup 5 ml PO HS PRN (Reason: cough) Qty: 118 RF: 0 Excedrin Extra Strength 1 EACH tablet 1 tab PO PRN RF: 0 diazepam [Valium] 2 mg tablet 1 mg PO TID Qty: 78 RF: 0 baclofen 20 mg tablet 20 mg PO TID PRN (Reason: muscle spasm) Qty: 90 RF: 3 vortioxetine 20 mg tablet 20 mg PO DAILY Qty: 90 RF: 4 acetaminophen [Tylenol] 325 MG tablet 650 mg PO PRN PRNRF: 0 promethazine 25 mg Tablet RF: 0 Discharge Instructions Instructions: Viral Syndrome (ED) Additional Instructions: Likely viral illness which will need to run its course. It will be important to stay hydrated with plenty of fluids. Tylenol or Motrin for fever and discomfort. Plenty of rest. Ondansetron if continued nausea vomiting. Follow- up with primary care next week if not feeling better. Return to ED for mental status changes, chest pain, shortness of breath, abdominal pain, other concerns or problems. Stand Alone Forms: Work Release Referrals: Donald Allen MD [Primary Care Provider] - Medical Decision Making Patient presenting with symptoms consistent with viral illness. No travel or known exposure to coronavirus. No high fever or body aches. Feels worse in regards to nausea and weakness. She is only vomited once. We will give Zofran ODT and challenge orally. Flu swab and chest x-ray obtained. Patient tolerating water here. Flu swab negative. Chest x-ray unremarkable. Discussed expected course and supportive care with patient. Off work for the week. Follow-up with primary care next week if not doing better. Return to ED for mental status changes, shortness of breath, chest pain, abdominal pain, other concerns or problems. Imaging Data Radiologic Study: Attestation: I personally reviewed and interpreted this imaging study as follows: Imaging: X-Ray My impression: negative Radiologist's impression: Imaging protocol: XR of the chest Views: 2 views. COMPARISON: [place] XR CHEST 2V PA LATERAL 12/14/2018 5:57 AM FINDINGS: Lungs: Unremarkable. No consolidation. Pleural space: Unremarkable. No pleural effusion. No pneumothorax. Heart/Mediastinum: Unremarkable. No cardiomegaly. Bones/joints: Unremarkable. IMPRESSION: No acute findings. HPI General Mode of arrival: ambulatory . Date/Time Provider Initiated Documentation: 01/17/20 04:59 . Limitations to Documentation: no limitations . Information obtained by: patient and RN notes reviewed . HPI Narrative: Patient presents to ED with complaint of not feeling well. She reports having headache, congestion, cough for couple of days. Tonight feels weak and woke up with nausea and an episode of vomiting. She denies chest pain or abdominal pain. There is been no travel outside of the [place]. No known exposure to coronavirus. She is a smoker. Occasionally feels short of breath. Denies fever or body aches. Related Data Home Medications Medication Instructions Recorded Confirmed Excedrin Extra Strength 1 tab PO PRN 02/28/13 01/11/20 acetaminophen [Tylenol] 650 mg PO PRN PRN 04/20/16 01/11/20 ibuprofen 200 mg tablet 600 mg PO TID PRN #90 tab 09/27/18 01/11/20 levothyroxine 125 mcg tablet 125 mcg PO DAILY #90 tab-cap 03/24/19 01/11/20 diazepam 2 mg tablet 1 mg PO TID #78 tab 11/14/19 01/11/20 promethazine 01/07/20 01/11/20 baclofen 20 mg tablet 20 mg PO TID PRN #90 tab 01/09/20 01/11/20 vortioxetine 20 mg tablet 20 mg PO DAILY #90 tab 01/09/20 01/11/20 oxycodone 10 mg tablet 10 mg PO Q6H PRN #94 tab MDD 4 tabs 01/11/20 01/11/20 promethazine 6.25 mg-codeine 10 5 ml PO HS PRN #118 ml 01/11/20 01/11/20 mg/5 mL syrup Ondansetron ODT, 3 tabs/btl 4 mg PO TID PRN PRN #0 01/17/20 [Zofran ODT, 3 tabs/btl] Previous Rx's Medication Instructions Recorded ibuprofen 200 mg tablet 600 mg PO TID PRN #90 tab 09/27/18 levothyroxine 125 mcg tablet 125 mcg PO DAILY #90 tab-cap 03/24/19 diazepam 2 mg tablet 1 mg PO TID #78 tab 11/14/19 baclofen 20 mg tablet 20 mg PO TID PRN #90 tab 01/09/20 vortioxetine 20 mg tablet 20 mg PO DAILY #90 tab 01/09/20 oxycodone 10 mg tablet 10 mg PO Q6H PRN #94 tab MDD 4 tabs 01/11/20 promethazine 6.25 mg-codeine 10 5 ml PO HS PRN #118 ml 01/11/20 mg/5 mL syrup Ondansetron ODT, 3 tabs/btl 4 mg PO TID PRN PRN #0 01/17/20 [Zofran ODT, 3 tabs/btl] Allergies Allergy/AdvReac Type Severity Reaction Status Date / Time Penicillins Allergy Severe Anaphylaxsi Verified 01/11/20 16:02 s adhesive Allergy Intermediate CAUSES Verified 01/11/20 16:02 BLISTERS Sulfa (Sulfonamide Allergy Unknown GI UPSET; Verified 01/11/20 16:02 Antibiotics) RASH levofloxacin [From Levaquin] Allergy Other (See Verified 01/11/20 16:02 Comment) duloxetine AdvReac Severe INCREASED Verified 01/11/20 16:02 DEPRESSION; INCREASED ANXIETY paroxetine AdvReac Severe Extreme Verified 01/11/20 16:02 irritability albuterol AdvReac Intermediate anxiety/heart Verified 01/11/20 16:02 racing diphenhydramine AdvReac Intermediate MAKES Verified 01/11/20 16:02 HEART RACE doxylamine AdvReac Intermediate RESTLESSNES Verified 01/11/20 16:02 S pseudoephedrine AdvReac Intermediate RESTLESSNES Verified 01/11/20 16:02 S codeine AdvReac Unknown URTICARIA; Verified 01/11/20 16:02 TACHYCARDIA ketorolac AdvReac Unknown Verified 01/11/20 16:02 dextromethorphan AdvReac RESTLESSNES Verified 01/11/20 16:02 S General Stated Complaint: Nausea/Vomit/Diar ZEV: 4 Review of Systems Narrative: As documented in HPI otherwise negative as below. Const: weakness; no fever, chills Resp: cough, occasional SOB; no pleuritic pain CV: no CP, diaphoresis, edema, syncope GI: nausea/vomiting; no abdominal pain, diarrhea Neuro: headache; no numbness, focal weakness, confusion [facility] Medical History Chronic pain syndrome (Chronic) 02/17/17-controlled substance agreement approved for 3 months (05/19/17) 05/27/17- CONTROLLED SUBSTANCE AGREEMENT RENEWED Depressive disorder (Chronic) Hypothyroidism (Chronic) Kidney stone (Inactive) H/O lithotripsy Palpitations (Chronic) Panic disorder (Chronic 02/19/17) Surgical History History of bilateral oophorectomy (Resolved) History of section (Resolved) Status post appendectomy (Resolved) Status post laparoscopic hysterectomy (Resolved) Status post tonsillectomy (Resolved) Social History Smoking/Tobacco Use Status: Current every day Tobacco Type: cigarettes Alcohol Intake: current Alcohol Intake frequency: holidays/special occasions only Drug use: Never Do you feel safe at home: Yes Do you feel safe in your relationship?: Yes Exam Narrative Exam Narrative: Vitals: Afebrile. Mild tachycardia. Elevated blood pressure. Normal respiratory rate and room air pulse oximetry. Const: WDWN female in NAD. HEENT: NC/AT. Normal facial exam. TMs clear bilaterally. Oropharynx with minimal posterior erythema but no exudate, swelling, or ulcers. Eyes: Normal conjunctiva and sclera. Neck: Supple. Trachea midline. Lungs: Normal respiratory effort. Lungs are clear. Cor: RRR without murmur/gallop. Good radial pulses. GI: Soft. NT/ND. No guarding or rebound. Neuro: A+O x 3. Normal speech, mentation, gait. Cranial nerves II - XII grossly intact. No gross motor or sensory deficit. Ext: No C/C/E. Skin: Warm and dry without rash. Course Vital Signs Vital signs: Vital Signs Temperature 98.2 F 01/17/20 04:54 Pulse 102 H 01/17/20 04:54 Respiratory Rate 16 01/17/20 04:54 Blood Pressure 124/51 L 01/17/20 04:54 Pulse Oximetry 100 01/17/20 04:54 Temperature 98.2 F 01/17/20 04:54 Temperature Source Oral 01/17/20 04:54 Pulse 102 H 01/17/20 04:54 Respiratory Rate 16 01/17/20 04:54 Respiratory Effort 01/17/20 04:59 Blood Pressure 124/51 L 01/17/20 04:54 Pulse Oximetry 100 01/17/20 04:54 Oxygen Delivery Method Room Air 01/17/20 04:54 Oxygen Flow Rate 0 01/17/20 04:54
[2020-01-17] MEDS: Ondansetron O.D.T. 4 MG TABEF PO (05:17)
[2020-01-17 05:19] VITALS: PULSE 87
--- NOTE | 2020-01-17 05:40 | DI.RAD_ITS ---
EXAM: XR CHEST 2V PA LATERAL CLINICAL HISTORY: cough, weakness. TECHNIQUE: 2D digital imaging was performed. COMPARISON: No exams were available for comparison FINDINGS: LUNGS: Clear. No pleural abnormality seen. HEART: Normal. MEDIASTINUM: Normal. OTHER FINDINGS:Normal. BONE:Normal. IMPRESSION: No acute pulmonary findings. DATA REPOSITORY: RADIATION DOSE DELIVERED:
--- NOTE | 2020-01-17 05:52 | DI.VRAD_ITS ---
PROCEDURE INFORMATION: Exam: XR Chest, 2 Views Exam date and time: 01/17/2020 5:41 AM Age: 54 years old Clinical indication: Cough and other: Weakness; Patient HX: Cough and weakness since yesterday TECHNIQUE: Imaging protocol: XR of the chest Views: 2 views. COMPARISON: SC XR CHEST 2V PA LATERAL 12/14/2018 5:57 AM FINDINGS: Lungs: Unremarkable. No consolidation. Pleural space: Unremarkable. No pleural effusion. No pneumothorax. Heart/Mediastinum: Unremarkable. No cardiomegaly. Bones/joints: Unremarkable. IMPRESSION: No acute findings. Dictated and Authenticated by: Holger King MD. Ordering:BERENICE Carr MD
[2020-01-17 06:23] VITALS: BP 123/66; PULSE 83; RESP 18; O2SAT 98
[2020-01-17] MEDS: Ondansetron O.D.T. 4 MG TABEF, 3 TABS/BTL PO (06:27)
== END 2020-01-17 06:20 | disposition home or self-care (01) ==
PROVIDERS: Emergency Provider Emergency Medicine; PCP Family Medicine
DX: R11.2 Nausea with vomiting, unspecified (principal); R51 Headache; R05 Cough; B34.9 Viral infection, unspecified
CPT/HCPCS: 87449; 99283; 71046

== ENCOUNTER 2020-09-05 20:28 | Outpatient (REF) | payer OTHER, SELFPAY ==
[2020-09-05 20:47] LABS: Abs Immature Grans 0.03 10^3/uL (0.0-0.06); Absolute Basophil Count 0.11 10^3/uL (0.0-0.2); Absolute Eosinophil Count 0.33 10^3/uL (0.0-0.7); Absolute Lymphocyte Count 2.89 10^3/uL (1.2-3.4); Absolute Monocyte Count 0.64 10^3/uL (0.1-0.8); Absolute Neutrophil Count 5.53 10^3/uL (1.2-6.7); Basophils % 1.2; Eosinophils % 3.5; HCT 43.6 % (36.0-46.0); HGB 13.9 g/dL (11.2-15.7); Immature Grans % 0.3; Lymphocytes % 30.3; MCH 23.2 pg (27.0-33.0); MCHC 31.9 % (32.0-36.0); MCV 72.9 fL (80-95); MPV 10.1 fL (8.0-11.0); Monocytes % 6.7; Nucleated RBC 0 %; Platelet Count 319 10^3/uL (130-400); RBC 5.98 10^6/uL (3.93-5.22); RDW 16.6 % (11.7-14.6); RDW-SD 41.6 fL; WBC 9.53 10^3/uL (4.4-10.8)
[2020-09-05 21:13] LABS: Diff Comment RBC Morph Reviewed; Microcytosis 2+
[2020-09-05 21:14] LABS: Poikilocytes 1+
[2020-09-05 21:18] LABS: Anion Gap 9.7 mmol/L (3-11); BUN 17 mg/dL (7-18); CO2 25.3 mmol/L (21.0-32.0); CREATININE 0.62 mg/dL (0.55-1.02); Calcium 9.6 mg/dL (8.5-10.1); Calculated LDL 151 mg/dL (<100); Chloride 104 mmol/L (98-107); Cholesterol 252 mg/dL (<200); Glucose 78 mg/dL (74-106); HDL Cholesterol 69 mg/dL (40-60); Potassium 4.3 mmol/L (3.5-5.1); Sodium 139 mmol/L (136-145); TSH 0.03 uIU/mL (0.36-3.74); Triglyceride 161 mg/dL (<150)
[2020-09-05 21:23] LABS: Hemoglobin A1C 5.9 % (<5.7)
[2020-09-05 21:39] LABS: FREE T4 1.27 ng/dL (0.76-1.46)
[2020-09-09 12:56] LABS: Total Iron Binding Capacity 419 ug/dL (250-450)
[2020-09-09 13:10] LABS: Ferritin 81 ng/mL (8-252)
== END 2020-09-05 20:48 ==
LOC: LBN 20:28
PROVIDERS: PCP Nurse Practitioner Family; Visit Provider Nurse Practitioner Family
DX: E03.9 Hypothyroidism, unspecified (principal); E78.5 Hyperlipidemia, unspecified; D64.9 Anemia, unspecified; R71.8 Other abnormality of red blood cells
CPT/HCPCS: 80048; 80061; 82728; 83036; 83550; 84439; 84443; 85025

== ENCOUNTER 2020-10-07 01:43 | Outpatient (CLI) | payer OTHER, SELFPAY ==
--- NOTE | 2020-10-07 08:45 | DI.RAD_ITS ---
EXAM: XR LUMBAR SPINE COMPLETE CLINICAL HISTORY: Chronic low back pain,,M54.5,G89.29. TECHNIQUE: 2D digital imaging was performed. COMPARISON: No exams were available for comparison FINDINGS: The vertebral bodies are well maintained in height. Small endplate osteophytes are seen throughout. There is mild narrowing of the L1-2 and L2-3 disc spaces and moderate narrowing of the L3-4 and L4-5 disc spaces. There is mild narrowing of the L5-S1 disc space. Facet degenerative changes are prese nt greatest at L4-5 and L5-S1. No spondylolysis, spondylolisthesis or significant scoliosis is seen. IMPRESSION: Degenerative changes. DATA REPOSITORY: RADIATION DOSE DELIVERED:
--- NOTE | 2020-10-07 16:04 | DI.MAMMO_ITS ---
EXAM: MAMMO SCREENING CLINICAL HISTORY: screening,Z12.39 TECHNIQUE: Mammograms were interpreted according to the usual protocol including computer analysis w [employer] CAD system, tomosynthesis and C-view imaging. COMPARISON: 2010 through 2018 FINDINGS: The breasts are composed of heterogeneously dense fibroglandular densities, Breast Density category C . There is mild motion on the right MLO view. No suspicious masses or suspicious microcalcifications are seen. A biopsy marker clip is noted in th e superior left breast. No skin thickening or abnormal axillary lymph nodes are seen. There has been no significant change from prior exams. IMPRESSION: BI-RADS Cat 0 - Assessment Incomplete: Need additional imaging evaluation. A repeat right MLO view is requested due to motion. Yearly screening mammography is recommended. Breast Density Category C, heterogeneously Dense. The mammogram demonstrates the patient's breast tissue is dense. Dense breast tissue is very common a nd is not abnormal but dense breast tissue can make it harder to find cancer on a mammogram. Also, de nse breast tissue may increase breast cancer risk. This information about the result of the mammogram report was provided to the patient to raise their awareness. Use this report when you speak with the patient about their risks for breast cancer, which includes their family history. At that time, you may recommend additional screening tests (Ultrasound or MRI) as they might be useful based on their r isk. A negative radiographic report should not delay biopsy if a dominant or clinically suspicious mass is present. Up to ten percent of cancers are not identified on mammography. A negative report may reinforce clinical impression. Adenosis and dense breasts may obscure an underlying neoplasm. False positive reports average 6 to 10%.
== END 2020-10-07 02:03 ==
PROVIDERS: PCP Nurse Practitioner Family; Visit Provider Nurse Practitioner Family
DX: Z12.31 Encounter for screening mammogram for malignant neoplasm of breast (principal); G89.29 Other chronic pain; M54.5 Low back pain; M47.816 Spondylosis without myelopathy or radiculopathy, lumbar region
CPT/HCPCS: 77063; 77067; 72110

== ENCOUNTER 2020-10-25 01:06 | Outpatient (CLI) | payer OTHER, SELFPAY ==
--- NOTE | 2020-10-25 | DI.MAMMO_ITS ---
EXAM: MG MAMMO SCREEN CALL BACK UNI CLINICAL HISTORY: F/U MAMMO,REPEAT RT MLO VIEW DUE TO MOTION TECHNIQUE: Mammograms were interpreted according to the usual protocol including computer analysis w [employer] CAD system, tomosynthesis and C-view imaging. COMPARISON: 2013 and 2018 FINDINGS: The breasts are composed of heterogeneously dense fibroglandular densities, Breast Density category C . No suspicious masses or suspicious microcalcifications are seen. No skin thickening or abnormal axillary lymph nodes are seen. There has been no significant change from prior exams. IMPRESSION: BI-RADS Category 1, Negative mammogram. Yearly screening mammography is recommended. Breast Density Category C, heterogeneously Dense. The mammogram demonstrates the patient's breast tissue is dense. Dense breast tissue is very common a nd is not abnormal but dense breast tissue can make it harder to find cancer on a mammogram. Also, de nse breast tissue may increase breast cancer risk. This information about the result of the mammogram report was provided to the patient to raise their awareness. Use this report when you speak with the patient about their risks for breast cancer, which includes their family history. At that time, you may recommend additional screening tests (Ultrasound or MRI) as they might be useful based on their r isk. A negative radiographic report should not delay biopsy if a dominant or clinically suspicious mass is present. Up to ten percent of cancers are not identified on mammography. A negative report may reinforce clinical impression. Adenosis and dense breasts may obscure an underlying neoplasm. False positive reports average 6 to 10%.
== END 2020-10-25 01:26 ==
PROVIDERS: PCP Nurse Practitioner Family; Visit Provider Nurse Practitioner Family
DX: R92.2 Inconclusive mammogram (principal)
CPT/HCPCS: 77063; 77067

== ENCOUNTER 2020-10-31 00:29 | Outpatient (CLI) | payer OTHER, SELFPAY ==
--- NOTE | 2020-10-31 07:45 | DI.MRI_ITS ---
EXAM: MR LUMBAR SPINE WO CLINICAL HISTORY: Lumbago with radiculopathy,M54.16. TECHNIQUE: Multiplanar multisequence MRI was performed. COMPARISON: No exams were available for comparison FINDINGS: MR examination of the lumbosacral spine was performed according to the usual protocol. There are Per i discal vertebral signal changes at L3-4, L4-5, and L5-S1. No other significant bony signal abnorma lity seen. The conus medullaris appears intact. No significant findings identified in the lower thoracic spine. At the L1-2 level, the bony spinal canal appears intact. No neural foraminal narrowing or central ca nal spinal stenosis. There is a small left paracentral/left lateral disc herniation, no definite jony ral impingement seen but possibility of left L2 nerve root impingement is not excluded. At the L2-3 level, there is a mild right paracentral/right lateral disc herniation, this may impinge the right L3 nerve root, please correlate clinically. No bony central canal spinal stenosis or neura l foraminal stenosis at this level. At L3-4, there is a mild disc bulge without evidence of disc herniation, central canal spinal stenosi s, or neural foraminal stenosis. Mild facet hypertrophic changes noted. At L4-5, there is slight hypertrophic facet changes. There is no evidence of disc herniation, centra l canal spinal stenosis, or neural foraminal stenosis. At L5-S1, there are moderate hypertrophic facet degenerative changes. There is no evidence of disc h erniation, central canal spinal stenosis, or neural foraminal stenosis. IMPRESSION: Multilevel facet degenerative changes and disc degenerative changes as described above. Please see above discussion for findings at individual levels. Small left-sided disc herniation at L1-2 could impinge left L2 nerve root. Small right-sided disc herniation at L2-3 may impinge right L3 nerve root. Please correlate clinical ly. DATA REPOSITORY:
== END 2020-10-31 00:49 ==
PROVIDERS: PCP Nurse Practitioner Family; Visit Provider Nurse Practitioner Family
DX: M51.26 Other intervertebral disc displacement, lumbar region (principal); M47.26 Other spondylosis with radiculopathy, lumbar region
CPT/HCPCS: 72148

== ENCOUNTER 2020-12-05 21:19 | Outpatient (REF) | payer OTHER, SELFPAY ==
[2020-12-05 21:28] LABS: FREE T4 1.32 ng/dL (0.76-1.46); TSH 0.55 uIU/mL (0.36-3.74)
== END 2020-12-05 21:39 ==
LOC: LBN 21:19
PROVIDERS: PCP Nurse Practitioner Family; Visit Provider Nurse Practitioner Family
DX: E03.9 Hypothyroidism, unspecified (principal)
CPT/HCPCS: 84439; 84443

== ENCOUNTER 2021-06-24 03:34 | Outpatient (CLI) | payer OTHER, SELFPAY ==
[2021-06-24 15:28] LABS: Hemoglobin A1C 5.8 % (<5.7)
[2021-06-24 16:25] LABS: Anion Gap 12.3 mmol/L (3-11); BUN 14 mg/dL (7-18); CO2 24.7 mmol/L (21.0-32.0); CREATININE 0.8 mg/dL (0.55-1.02); Calcium 8.7 mg/dL (8.5-10.1); Calculated LDL 137 mg/dL (<100); Chloride 108 mmol/L (98-107); Cholesterol 224 mg/dL (<200); Glucose 91 mg/dL (74-106); HDL Cholesterol 68 mg/dL (40-60); Potassium 4.1 mmol/L (3.5-5.1); Sodium 145 mmol/L (136-145); TSH 1.49 uIU/mL (0.36-3.74); Triglyceride 99 mg/dL (<150)
[2021-06-24 16:42] LABS: FREE T4 1.04 ng/dL (0.76-1.46)
== END 2021-06-24 03:35 | disposition home or self-care (01) ==
PROVIDERS: PCP Nurse Practitioner Family; Visit Provider Nurse Practitioner Family
DX: E03.9 Hypothyroidism, unspecified (principal); E78.5 Hyperlipidemia, unspecified; R73.03 Prediabetes
CPT/HCPCS: 36415; 80048; 80061; 83036; 84439; 84443

== ENCOUNTER 2021-06-24 04:11 | Outpatient (CLI) | payer OTHER, SELFPAY ==
[2021-06-24] MEDS: Albuterol HFA 18 GM 200 PUFF INH IH (16:12)
[2021-06-24] MEDS: Inhaler, Assist Device 1 EACH MC (16:13)
--- NOTE | 2021-06-24 17:56 | W.PFT ---
Date of service: 06/24/21 Time of Service: 15:15 Pulmonary Function Test Result Interpretation Spirometry: There is no airflow obstruction. There is no bronchodilator response. Lung Volumes: Patient declined due to claustrophobia Diffusion Capacity: There is reduced diffusion Impression No airflow obstruction with reduced diffusion, this can be seen in emphysema without COPD as well as and pulmonary vascular disease. Clinical Correlation therefore is recommended.
== END 2021-06-24 04:12 | disposition home or self-care (01) ==
LOC: RT 04:11
PROVIDERS: PCP Nurse Practitioner Family; Visit Provider Nurse Practitioner Family
DX: F17.210 Nicotine dependence, cigarettes, uncomplicated (principal)
CPT/HCPCS: 94060; 94729

== ENCOUNTER 2021-11-12 00:25 | Outpatient (CLI) | payer OTHER, SELFPAY ==
--- NOTE | 2021-11-12 07:00 | DI.CTLCSR_ITS ---
Exam(s) CT CHEST LUNG CANCER SCREEN EXAM: CT CHEST LUNG CANCER SCREEN CLINICAL HISTORY: Screening for lung cancer,CURRENT SMOKER, F17.210. TECHNIQUE: Imaging Protocol: Low Dose Technique CONTRAST MATERIAL: None COMPARISON: CR,XR XR CHEST 2V PA LATERAL from 01/17/2020 CR,XR XR CHEST 2V PA LATERAL from 01/17/2020 FINDINGS: CHEST: LUNGS: There is a fissure based 8 x 7 millimeter noncalcified nodule in the right lung posterior segm ent right upper lobe. More peripherally in the right upper lobe there is a pleural-based 2-[address] nodule. There is also a pleural based 4 x 3 millimeter nodule laterally over the right upper lob e. No pleural effusions. In the opposite-left lung there is a 3 millimeter nodule in the lateral ba [place] segment of the left lower lobe. There is also a pleural based 2-3 millimeter nodule slightly hig her up in the lateral basal segment junction with superior segment of the left lower lobe. There are no obvious nodules in the left upper lobe. Benign-appearing increased markings are noted in the inf erior lingular segment of the left lung. There are no pleural effusions on either side. MEDIASTINUM: There is no obvious hilar nor mediastinal adenopathy. CARDIAC: Heart size is normal. There is no pericardial effusion.Caliber of the thoracic aorta is wit hin normal limits. OTHER: OSSEOUS: No significant osseous lesions.. IMPRESSION: 1. Small bilateral pulmonary nodules as described individually above. The largest is straddling the right upper lobe/superior segment right lower lobe, intimately associated with the major fissure at t his level. It measures approximately 8 x [address] scan in 3 months. 2. There are no pleural effusions nor intrathoracic adenopathy. 3. Lung RADS Cat 4A - Suspicious: Repeat CT scan in 3 months. Findings for which additional diagnost ic testing and/or tissue sampling recommended Lung-RADS 1.0 CATEGORIES: Category 0 - Prior chest CT exam(s) being located for comparison. Category 1 - Annual screening in 12 months. No nodules or definitely benign nodules. Category 2 - Annual screening in 12 months. Benign appearance. Nodules with low likelihood of becomin g active cancer. Category 3 - 6-month follow-up. Probably benign. Short-term follow-up suggested. Nodules with low lik elihood of becoming active cancer. Category 4A - 3-month follow-up and CT/PET if >8 mm in size. Suspicious finding. Findings which requi re additional testing. Category 4B - Findings which require additional testing and tissue sampling. Modifier S- Potentially clinically significant findings (non lung cancer) RADIATION DOSE DELIVERED: 85.4mGy.cm Total DLP 2.21mGy CTDIvol DATA REPOSITORY: All CT scans at this facility are submitted to the National Radiology Data Registry (NRDR) Dose Index Registry (DIR) with the [employer] (A[employer]). RADIATION OPTIMIZATION: All CT scans at this facility use at least one of these dose optimization te chniques: automated exposure control; mA and/or kV adjustment per patient size (includes targeted exa ms where dose is matched to clinical indication); or iterative reconstruction.
--- NOTE | 2021-11-12 10:59 | DI.MAMMO_ITS ---
Exam(s) MAMMO SCREENING EXAM: MAMMO SCREENING CLINICAL HISTORY: screening, z12.39. TECHNIQUE: Bilateral full field digital CC and MLO mammographic images were obtained with 3D tomosyn thesis and utilizing computer aided detection (CAD). COMPARISON: Prior mammograms dating back to 2013, the most recent being September 2020. FINDINGS: Posterior inferior skin nodule again noted in the right breast. There are no CAD designations There are no new spiculated masses nor malignant appearing microcalcification groups. New findings in the immediate vicinity of biopsy marker in the left breast There is no significant architectural distortion nor skin thickening-retraction. IMPRESSION: No radiographic evidence of malignancy. BI-RADS Category 1 - Negative Breast Density - Category C - Heterogeneously dense Breast density Category C or D implies that the patient has dense breast tissue. Dense breast tissue can make it harder to find cancer on a mammogram. Dense breast tissue is also associated with an incr eased risk of breast cancer. This information about the result of the mammogram report was provided to the patient to raise their awareness. Use this report when you speak with the patient about their risks for breast cancer, which includes their family history. At that time, you may recommend additional screening tests (Ultrasoun d or MRI) as these tests may add significant information. A negative radiographic report should not delay biopsy if a dominant or clinically suspicious mass is present. Up to ten percent of cancers are not identified on mammography. A negative report may reinforce clinical impression. Adenosis and dense breasts may obscure an underlying neoplasm. False positive reports average 6 to 10%. Patient will receive a letter notifying them of these results.
== END 2021-11-12 00:45 ==
PROVIDERS: PCP Nurse Practitioner Family; Visit Provider Nurse Practitioner Family
DX: Z12.31 Encounter for screening mammogram for malignant neoplasm of breast (principal); Z12.2 Encounter for screening for malignant neoplasm of respiratory organs; F17.210 Nicotine dependence, cigarettes, uncomplicated; R91.8 Other nonspecific abnormal finding of lung field; J98.4 Other disorders of lung
CPT/HCPCS: 71271; 77063; 77067

== ENCOUNTER 2022-03-03 01:52 | Outpatient (CLI) | payer BC, SELFPAY ==
[2022-03-03 08:48] LABS: HCT 43.8 % (36.0-46.0); HGB 13.8 g/dL (11.2-15.7); MCHC 31.5 % (32.0-36.0); MCV 76.3 fL (80-95); MPV 9.4 fL (8.0-11.0); Platelet Count 270 10^3/uL (130-400); RBC 5.74 10^6/uL (3.93-5.22); RDW 15.6 % (11.7-14.6); WBC 8.99 10^3/uL (4.4-10.8)
[2022-03-03 09:24] LABS: Hemoglobin A1C 5.7 % (<5.7)
[2022-03-03 10:02] LABS: ALT 17 U/L (14-59); AST 9 U/L (15-37); Albumin 4.1 g/dL (3.4-5.0); Alkaline Phosphatase 102 U/L (46-116); Anion Gap 10.4 mmol/L (3-11); BUN 19 mg/dL (7-18); Bilirubin, Total 0.3 mg/dL (0.2-1.0); CO2 25.6 mmol/L (21.0-32.0); CREATININE 0.9 mg/dL (0.55-1.02); Calcium 8.9 mg/dL (8.5-10.1); Chloride 105 mmol/L (98-107); Glucose 101 mg/dL (74-106); Potassium 4.7 mmol/L (3.5-5.1); Sodium 141 mmol/L (136-145); Total Protein 7.3 g/dL (6.4-8.2)
[2022-03-03 10:08] LABS: Calculated LDL 147 mg/dL (<100); Cholesterol 229 mg/dL (<200); HDL Cholesterol 66 mg/dL (40-60); TSH 1.26 uIU/mL (0.36-3.74); Triglyceride 81 mg/dL (<150)
[2022-03-03 10:33] LABS: FREE T4 1.09 ng/dL (0.76-1.46)
[2022-03-03 22:02] LABS: Lab Add On Test DONE
[2022-03-04 00:04] LABS: Creatine Kinase 40 U/L (26-192)
[2022-03-05 08:07] LABS: Lab Add On Test DONE
[2022-03-05 08:31] LABS: Ferritin 114 ng/mL (8-252)
== END 2022-03-03 01:53 | disposition home or self-care (01) ==
LOC: LBO 01:54
PROVIDERS: Family Medicine; PCP Nurse Practitioner Family; Visit Provider Nurse Practitioner Family
DX: E78.5 Hyperlipidemia, unspecified (principal); R73.03 Prediabetes; E03.9 Hypothyroidism, unspecified; I10 Essential (primary) hypertension; M25.512 Pain in left shoulder; M54.2 Cervicalgia; M79.18 Myalgia, other site; R71.8 Other abnormality of red blood cells
CPT/HCPCS: 36415; 80048; 80053; 80061; 82550; 85027; 82728; 83036; 84439; 84443; 86140

== ENCOUNTER 2022-03-03 18:10 | Outpatient (REF) | payer BC, SELFPAY | END 2022-03-03 18:11 | disposition home or self-care (01) | LOC: LBN 18:10 | PROVIDERS: PCP Nurse Practitioner Family; Visit Provider Family Medicine ==

== ENCOUNTER 2022-05-25 01:48 | Outpatient (CLI) | payer BC, SELFPAY ==
--- NOTE | 2022-05-25 07:00 | DI.RAD_ITS ---
Exam(s) XR TIB/FIB LT EXAM: XR TIB/FIB LT CLINICAL HISTORY: left calf pain painmid tibia.medially, no injury,m79.605,? acute process. TECHNIQUE: 2D digital imaging was performed. COMPARISON: No exams were available for comparison FINDINGS: Two views-AP and lateral No evidence of fracture. Benign bone island noted in the fibular neck. Tibial plateau appears intac t. Bone density normal. No lytic osseous lesions IMPRESSION: DATA REPOSITORY: RADIATION DOSE DELIVERED:
--- NOTE | 2022-05-25 07:00 | DI.US_ITS ---
Exam(s) US LOWER EXTREMITY VENOUS LT EXAM: US LOWER EXTREMITY VENOUS LT CLINICAL HISTORY: leg/calf pain, edema,? DVT,m79.605 TECHNIQUE: Grayscale, color, and doppler imaging of the deep venous system of the left lower extremi ty was performed. COMPARISON: US US ABDOMEN from 11/11/2021 FINDINGS: There is no evidence of intraluminal thrombus and there is normal compression and augmentation demons trated within the common femoral vein, femoral vein, and popliteal vein. In the ipsilateral calf the interrogated veins also exhibit normal compression/ augmentation properti es. The ipsilateral saphenofemoral junction is patent. IMPRESSION: 1. No evidence of DVT in the left lower extremity. DATA REPOSITORY:
== END 2022-05-25 02:08 ==
LOC: DI 01:48
PROVIDERS: PCP Nurse Practitioner Family; Visit Provider Family Medicine
DX: M79.662 Pain in left lower leg (principal)
CPT/HCPCS: 73590; 93971

== ENCOUNTER 2022-09-15 16:35 | Emergency (ER) | payer BC, SELFPAY ==
[2022-09-15 16:42] VITALS: BP 126/87; PULSE 85; RESP 20; TEMP 36.9; O2SAT 98
--- NOTE | 2022-09-15 17:00 | DI.RAD_ITS ---
Exam(s) XR CHEST 2V PA LATERAL EXAM: XR CHEST 2V PA LATERAL CLINICAL HISTORY: cough. TECHNIQUE: 2D digital imaging was performed. COMPARISON: CR,XR XR CHEST 2V PA LATERAL from 01/17/2020 FINDINGS: 2 views: Heart size is normal. The mediastinum is not widened. Lungs are clear. No infiltrates nor pleural effusions. IMPRESSION: No acute pulmonary findings. DATA REPOSITORY: RADIATION DOSE DELIVERED:
--- NOTE | 2022-09-15 18:50 | DI.VRAD_ITS ---
PROCEDURE INFORMATION: Exam: XR Chest Exam date and time: 09/15/2022 6:28 PM Age: 56 years old Clinical indication: Patient HX: Cough since covid, almost a month TECHNIQUE: Imaging protocol: Radiologic exam of the chest. Views: 2 views. COMPARISON: CT CHEST WO 03/06/2022 2:57 PM FINDINGS: Lungs: There is mild central peribronchial thickening. No pulmonary parenchymal airspace opacities are identified. There is no pulmonary vascular congestion. Pleural spaces: There are no pleural effusions present. There is no evidence of pneumothorax. Heart/Mediastinum: The cardiomediastinal silhouette is within normal limits. Bones/joints: The thoracic spine demonstrates mild degenerative changes at multiple levels. IMPRESSION: 1. Mild central peribronchial thickening could reflect bronchitis. Recommend clinical correlation. 2. No pulmonary parenchymal airspace opacities identified. Dictated and Authenticated by: Donald Olmstead MD. Ordering:AMMY Van MD
[2022-09-15] MEDS: Benzonatate 100 MG CAP PO (18:54)
[2022-09-15] MEDS: Dexamethasone 10 MG/ML VIAL IVP (18:58)
[2022-09-15] MEDS: Normal Saline 1,000 ML 1000 ML IV (18:59)
[2022-09-15] MEDS: Albuterol/Ipratropium 3 ML UPD VIAL UPD (19:02)
--- NOTE | 2022-09-15 19:02 | ED.GENADUL_ITS ---
Discharge Plan Disposition Patient Disposition: HOME Condition: Stable Discharge Details Clinical Impression: Bronchitis due to COVID-19 virus Primary Care Provider: Arianne Walker ED Provider: Rehan Calero Home Meds and New Rx's Prescriptions: New benzonatate 200 mg capsule 200 mg PO TID PRN (Reason: cough) Qty: 30 0RF Continued ibuprofen 200 mg tablet 600 mg PO TID PRN (Reason: pain) Qty: 90 4RF Rx Instructions: After meals omeprazole 20 mg capsule,delayed release(DR/EC) 40 mg PO DAILY Qty: 90 0RF levothyroxine 112 mcg tablet 112 mcg PO DAILY Qty: 90 4RF vortioxetine 10 mg tablet 10 mg PO DAILY Qty: 90 4RF baclofen 20 mg tablet 20 mg PO TID PRN (Reason: muscle spasm) Qty: 90 3RF albuterol sulfate 90 mcg/actuation HFA aerosol inhaler 2 inh inhalation Q6H PRN (Reason: shortness of breath or wheezing) Qty: 18 4RF sumatriptan succinate 50 mg tablet 50 mg PO ONCE PRN (Reason: migraine headache) Qty: 90 0RF Rx Instructions: Take 1 tablet at first onset of migraine headache, may repeat in 1-2hrs if still present promethazine 25 mg tablet 25 mg PO Q6H PRN (Reason: nausea and vomiting) Qty: 60 2RF diazepam [Valium] 2 mg tablet 1 mg PO QHS PRN (Reason: anxiety and sleep) Qty: 14 2RF Rx Instructions: Half a tablet at bedtime IF NEEDED for anxiety and sleep No Action ipratropium-albuterol 0.5 mg-3 mg(2.5 mg base)/3 mL solution for nebulization 3 ml inhalation Q4H PRN (Reason: wheezing) Qty: 180 0RF prednisone 20 mg tablet 20 - 60 mg PO DAILY Qty: 30 0RF Rx Instructions: Take 3 tablets daily for 5 days then 2 tablets daily for 5 days then 1 tablet daily for 5 days Discharge Instructions Instructions: Acute Bronchitis (ED) Additional Instructions: Please continue to monitor your symptoms and if you notice any severe worsening of symptoms feel free to return the emergency department for reassessment. Otherwise take medication as prescribed and follow-up with your primary care provider if not improving in the next week. Referrals: Arianne Walker, ALPHONSE [Primary Care Provider] - 1 week (If not improving) Discharge Data Discharge Date/Time-TO BE ENTERED AT DEPARTURE: 09/15/22 20:35 Medical Decision Making Patient presenting to the emergency department for chief complaint of continued cough and shortness of breath after COVID illness. Patient was seen and diagnosed and given Paxlovid which she took about a week ago. Since then she has had continued symptoms. Patient denies any severe worsening of symptoms just more persistent. Physical exam shows very slight wheeze in the left lung that cleared with coughing otherwise dry persistent cough is noted during exam and unremarkable exam otherwise. We will plan on checking labs including chest x-ray and D-dimer due to COVID illness. Pending results we will give DuoNeb, steroids, and IV fluids. Reviewed laboratory results which are reassuring, negative D-dimer, chest x-ray shows no focal findings to suggest pneumonia. Patient reassessed and did state improvement of symptoms. Will prescribe patient Tessalon Perles and patient states she already has prescription for prednisone and nebulizer. discussed diagnosis along with monitoring symptoms return and follow-up precautions. After discussion of diagnosis and plan of care patient has no further needs, questions, or concerns and states clear understanding to return to the emergency department for any worsening symptoms. This documentation was generated using [employer] dictation system, please disregard any oddities of phrase or misspellings. Imaging Data Radiologic Study: Attestation: I personally reviewed and interpreted this imaging study as osmin butler: Imaging: X-Ray Radiologist's impression: FINDINGS: Lungs: There is mild central peribronchial thickening. No pulmonary parenchymal airspace opacities are identified. There is no pulmonary vascular congestion. Pleural spaces: There are no pleural effusions present. There is no evidence of pneumothorax. Heart/Mediastinum: The cardiomediastinal silhouette is within normal limits. Bones/joints: The thoracic spine demonstrates mild degenerative changes at multiple levels. IMPRESSION: 1. Mild central peribronchial thickening could reflect bronchitis. Recommend clinical correlation. 2. No pulmonary parenchymal airspace opacities identified. HPI General Mode of arrival: ambulatory . Date/Time Provider Initiated Documentation: 09/15/22 16:36 . Limitations to Documentation: no limitations . Information obtained by: patient and RN notes reviewed . History of Present Illness 56 year old F presents to the emergency department with the chief complaint of Cough and shortness of breath after COVID infection, described as moderate, with intensity rated at 8. Quality is described as aching, and is localized to the chest. Patient reports no radiation. Patient started experiencing this week(s) (2) and it has been constant. No relieving factors improve symptom(s), Other factors that worsen symptoms (coughing) . Related Data Home Medications Medication Instructions Recorded Confirmed ibuprofen 200 mg tablet 600 mg PO TID PRN pain #90 tabs 09/27/18 05/22/22 omeprazole 20 mg capsule,delayed 40 mg PO DAILY #90 caps 11/13/21 05/22/22 release baclofen 20 mg tablet 20 mg PO TID PRN muscle spasm #90 11/19/21 05/22/22 tabs levothyroxine 112 mcg tablet 112 mcg PO DAILY #90 tab-caps 11/19/21 05/22/22 vortioxetine 10 mg tablet 10 mg PO DAILY #90 tabs 11/19/21 05/22/22 albuterol sulfate 90 mcg/actuation 2 inh inhalation Q6H PRN shortness 05/26/22 aerosol inhaler of breath or wheezing #18 grams sumatriptan succinate 50 mg tablet 50 mg PO ONCE PRN migraine 07/14/22 headache #90 tabs promethazine 25 mg tablet 25 mg PO Q6H PRN nausea and 08/11/22 vomiting #60 tabs diazepam 2 mg tablet (Valium) 1 mg PO QHS PRN anxiety and sleep 09/03/22 #14 tab-caps benzonatate 200 mg capsule 200 mg PO TID PRN cough #30 caps 09/15/22 ipratropium 0.5 mg-albuterol 3 mg 3 ml inhalation Q4H PRN wheezing 09/17/22 (2.5 mg base)/3 mL nebulization #180 mL soln prednisone 20 mg tablet 20 - 60 mg PO DAILY #30 tabs 09/17/22 Previous Rx's Medication Instructions Recorded ibuprofen 200 mg tablet 600 mg PO TID PRN pain #90 tabs 09/27/18 omeprazole 20 mg capsule,delayed 40 mg PO DAILY #90 caps 11/13/21 release baclofen 20 mg tablet 20 mg PO TID PRN muscle spasm #90 11/19/21 tabs levothyroxine 112 mcg tablet 112 mcg PO DAILY #90 tab-caps 11/19/21 vortioxetine 10 mg tablet 10 mg PO DAILY #90 tabs 11/19/21 albuterol sulfate 90 mcg/actuation 2 inh inhalation Q6H PRN shortness 05/26/22 aerosol inhaler of breath or wheezing #18 grams sumatriptan succinate 50 mg tablet 50 mg PO ONCE PRN migraine 07/14/22 headache #90 tabs promethazine 25 mg tablet 25 mg PO Q6H PRN nausea and 08/11/22 vomiting #60 tabs diazepam 2 mg tablet (Valium) 1 mg PO QHS PRN anxiety and sleep 09/03/22 #14 tab-caps benzonatate 200 mg capsule 200 mg PO TID PRN cough #30 caps 09/15/22 ipratropium 0.5 mg-albuterol 3 mg 3 ml inhalation Q4H PRN wheezing 09/17/22 (2.5 mg base)/3 mL nebulization #180 mL soln prednisone 20 mg tablet 20 - 60 mg PO DAILY #30 tabs 09/17/22 Allergies Allergy/AdvReac Type Severity Reaction Status Date / Time Penicillins Allergy Severe Anaphylaxsi Verified 05/22/22 15:45 s adhesive Allergy Intermediate CAUSES Verified 05/22/22 15:45 BLISTERS Sulfa (Sulfonamide Allergy Unknown GI UPSET; Verified 05/22/22 15:45 Antibiotics) RASH levofloxacin [From Levaquin] Allergy Other (See Verified 05/22/22 15:45 Comment) duloxetine AdvReac Severe INCREASED Verified 05/22/22 15:45 DEPRESSION; INCREASED ANXIETY paroxetine AdvReac Severe Extreme Verified 05/22/22 15:45 irritability varenicline [From Chantix] AdvReac Severe Suicidal Verified 05/22/22 15:45 ideation albuterol AdvReac Intermediate anxiety/heart Verified 05/22/22 15:45 racing diphenhydramine AdvReac Intermediate MAKES Verified 05/22/22 15:45 HEART RACE doxylamine AdvReac Intermediate RESTLESSNES Verified 05/22/22 15:45 S pseudoephedrine AdvReac Intermediate RESTLESSNES Verified 05/22/22 15:45 S codeine AdvReac Unknown URTICARIA; Verified 05/22/22 15:45 TACHYCARDIA ketorolac AdvReac Unknown Verified 05/22/22 15:45 dextromethorphan AdvReac RESTLESSNES Verified 05/22/22 15:45 S General Stated Complaint: RespSymp ZEV: 4 Review of Systems Constitutional Constitutional: Denies chills, Denies fever(s), Denies headache(s), Reports lethargy, Reports malaise and Reports poor appetite Eyes Eyes: Reports system reviewed and no additional complaints, except as documented ENT Ears, Nose, Mouth, and Throat: Denies headache(s), Denies nasal congestion, Denies nasal discharge and Denies sore throat Cardiovascular Cardiovascular: Reports chest pain (With coughing), Denies syncope, Denies rapid heart rate, Denies leg edema, Denies lightheadedness and Reports dyspnea Respiratory Respiratory: Reports as per HPI, Reports cough, Reports pain with cough, Reports dyspnea and Denies wheezing Gastrointestinal Gastrointestinal: Denies abdominal pain, Denies diarrhea, Denies nausea and Denies vomiting Genitourinary Genitourinary: Reports system reviewed and no additional complaints, except as documented Musculoskeletal Musculoskeletal: Reports myalgias Integumentary/Breasts Skin/Breast: Denies rash Neurologic Neurologic: Denies syncope and Denies headache(s) Allergic/Immunologic Allergic/Immunologic: Denies wheezing PFSH All Active Problems Bronchitis due to COVID-19 virus (Acute) COVID-19 (Acute ~08/24/22) Low mean corpuscular volume (MCV) (Acute) Chronic, patient has a family history of thalassemia. Suspect that she carries the trait Lumbar spondylosis (Chronic) Prediabetes (Chronic) Lumbar back pain with radiculopathy affecting right lower extremity (Chronic) Hypothyroidism (Chronic) Hyperlipidemia (Chronic) GERD (gastroesophageal reflux disease) (Chronic) Major depressive disorder (Chronic) Generalized anxiety disorder with panic attacks (Chronic) Fibrocystic disease of breast (Chronic) Migraine headache without aura (Chronic) Cigarette smoker (Chronic) Annual LDCT, negative 03/06 Medical History (Updated 09/15/22 @ 20:12 by Rehan Calero NP) Endometriosis Kidney stone Nodule of upper lobe of right lung Suspicious RUL nodule on 10/[address], repeat in 03/06 with stable appearance, recommended to repeat in 1yr Surgical History History of carpal tunnel surgery of right wrist Hx of lithotripsy S/P appendectomy S/P section S/P BRIAN-BSO (total abdominal hysterectomy and bilateral salpingo-oophorectomy) For endometriosis S/P tonsillectomy Family History Mother , 78 COPD (chronic obstructive pulmonary disease) Diabetes Atrial fibrillation Father , metastatic lung cancer at 62 Metastatic primary lung cancer Sister , at 50 from P.E. Clotting disorder Depression Son WPW (Dgyfz-Ingirhrza-Yqjvj syndrome) Daughter Depression Maternal Grandfather No problems noted. Maternal Grandmother No problems noted. Paternal Grandfather No problems noted. Paternal Grandmother No problems noted. Maternal Uncle Thalassemia Social History Smoking/Tobacco Use Status: Current every day Tobacco Type: cigarettes Smoking packs per day: 1 Smoking cigarettes per day: 20.0 Years smoked: 39 Smoking pack- years: 39.00 Quit status: considering quitting Smoking risk assessment performed?: Yes Alcohol Intake: current Alcohol Intake frequency: holidays/special occasions only Drug use: Never Substance use type: does not use Caregiver/Support person: No Household members: spouse and children Housing: house Number of Children: 2 Pets and animals: Yes Pets and animals: cat(s) and dog(s) Sexually active: Yes What is your relationship status?: Panel score (0-1 are the most socially isolated patients): 1 What type of physical activity do you participate in: walking Duration: < 15 minutes/day Frequency: 1-2 times per week Danay/Mosque: Anabaptist Seatbelt use: always Helmet use: Yes Helmet use: always Drive intox or ride w/intox minibus driver: No Do you feel safe at home: Yes Do you feel safe in your relationship?: Yes Female Reproductive History Menstrual Menopause type: surgical Exam Const General: cooperative and no acute distress Orientation: alert and awake [facility] Head: normal to inspection, normocephalic and atraumatic Ears: hearing grossly normal bilaterally and TM's normal bilaterally General nose exam: external nose normal Face and sinus: no erythema Mouth: oral mucosae normal, no drooling, no muffled voice and no trismus Throat: posterior oropharynx normal Neck Neck: normal visual inspection, full ROM, no lymphadenopathy, no meningeal signs, trachea midline and supple Resp Effort & Inspection: normal respiratory effort, able to speak in complete sentences and cough Quality of cough: dry Auscultation: clear to auscultation bilaterally Cardio Rate: regular rate Rhythm: regular rhythm Heart Sounds: S1 normal, S2 normal, normal S1 and S2, no click, no gallops, no murmurs and no rubs Skin General skin exam: no rashes or lesions noted and dry skin (warm) Neuro General: patient alert, patient awake, patient oriented x3, gait normal and moves all extremities Cognition: normal cognition Speech: speech normal Course Vital Signs Vital signs: Vital Signs Temperature 36.9 C 09/15/22 16:42 Pulse 85 09/15/22 16:42 Respiratory Rate 20 09/15/22 16:42 Blood Pressure 126/87 09/15/22 16:42 Pulse Oximetry 98 09/15/22 16:42 Temperature 36.9 C 09/15/22 16:42 Temperature Source Tympanic 09/15/22 16:42 Pulse 85 09/15/22 16:42 Respiratory Rate 20 09/15/22 16:42 Respiratory Effort Short of Breath 09/15/22 18:44 Respiratory Depth Normal 09/15/22 18:44 Blood Pressure 126/87 09/15/22 16:42 Blood Pressure Position Sitting 09/15/22 16:42 Pulse Oximetry 98 09/15/22 16:42 Pain Level 8 09/15/22 16:42
[2022-09-15 19:12] LABS: Abs Immature Grans 0.02 10^3/uL (0.0-0.06); Absolute Basophil Count 0.08 10^3/uL (0.0-0.2); Absolute Eosinophil Count 0.37 10^3/uL (0.0-0.7); Absolute Lymphocyte Count 2.64 10^3/uL (1.2-3.4); Absolute Monocyte Count 0.55 10^3/uL (0.1-0.8); Absolute Neutrophil Count 4.54 10^3/uL (1.2-6.7); Eosinophils % 4.5; HCT 41.6 % (36.0-46.0); HGB 13.1 g/dL (11.2-15.7); Immature Grans % 0.2; Lymphocytes % 32.2; MCH 22.9 pg (27.0-33.0); MCHC 31.5 % (32.0-36.0); MCV 73 fL (80-95); MPV 9.5 fL (8.0-11.0); Monocytes % 6.7; Neutrophils % 55.4; Platelet Count 301 10^3/uL (130-400); RBC 5.72 10^6/uL (3.93-5.22); RDW 15.5 % (11.7-14.6); RDW-SD 39.7 fL
[2022-09-15 19:27] LABS: ALT 30 U/L (14-59); AST 20 U/L (15-37); Albumin 4.3 g/dL (3.4-5.0); Alkaline Phosphatase 108 U/L (46-116); Anion Gap 7.8 mmol/L (3-11); BUN 18 mg/dL (7-18); Bilirubin, Total 0.3 mg/dL (0.2-1.0); CO2 27.2 mmol/L (21.0-32.0); CREATININE 0.8 mg/dL (0.55-1.02); Calcium 9.7 mg/dL (8.5-10.1); Chloride 104 mmol/L (98-107); Estimated GFR 86.42 (mL/min/1.73m2); Glucose 97 mg/dL (74-106); Potassium 4.1 mmol/L (3.5-5.1); Sodium 139 mmol/L (136-145); Total Protein 8.1 g/dL (6.4-8.2)
[2022-09-15 19:31] LABS: Diff Comment RBC Morph Reviewed; Microcytosis 2+
[2022-09-15 19:47] LABS: D-Dimer 317 ng/mlFEU (<500)
[2022-09-15 20:32] VITALS: BP 126/87; PULSE 85; RESP 20; TEMP 36.9; O2SAT 98
== END 2022-09-15 20:35 | disposition home or self-care (01) ==
PROVIDERS: Emergency Provider Nurse Practitioner Family; PCP Nurse Practitioner Family
DX: U09.9 Post COVID-19 condition, unspecified (principal); J20.8 Acute bronchitis due to other specified organisms; R05.1 Acute cough; R06.02 Shortness of breath
CPT/HCPCS: 80053; 96361; 96374; 99284; 71046; 85025; 85379; 99283; J1100; J7620

== ENCOUNTER 2022-12-01 03:35 | Outpatient (CLI) | payer BC, SELFPAY ==
[2022-12-01 13:02] LABS: ALT 22 U/L (14-59); AST 16 U/L (15-37); Alkaline Phosphatase 101 U/L (46-116); Anion Gap 8.8 mmol/L (3-11); BUN 13 mg/dL (7-18); Bilirubin, Total 0.3 mg/dL (0.2-1.0); CO2 28.2 mmol/L (21.0-32.0); CREATININE 0.9 mg/dL (0.55-1.02); Calcium 9.6 mg/dL (8.5-10.1); Calculated LDL 172 mg/dL (<100); Chloride 103 mmol/L (98-107); Cholesterol 258 mg/dL (<200); Estimated GFR 74.57 (mL/min/1.73m2); Glucose 95 mg/dL (74-106); HDL Cholesterol 58 mg/dL (40-60); Potassium 4.1 mmol/L (3.5-5.1); Sodium 140 mmol/L (136-145); TSH 4.11 uIU/mL (0.36-3.74); Total Protein 7.6 g/dL (6.4-8.2); Triglyceride 144 mg/dL (<150)
[2022-12-01 19:14] LABS: Estimated Average Glucose 123 mg/dL; Hemoglobin A1C 5.9 % (<5.7)
[2022-12-02 15:40] LABS: Hemoglobinopathy Interpretat (See Note)
== END 2022-12-01 03:36 | disposition home or self-care (01) ==
LOC: LOS 03:36
PROVIDERS: PCP Nurse Practitioner Family; Visit Provider Nurse Practitioner Family
DX: E03.9 Hypothyroidism, unspecified (principal); E78.5 Hyperlipidemia, unspecified; R73.03 Prediabetes; R71.8 Other abnormality of red blood cells; Z83.2 Family history of diseases of the blood and blood-forming organs and certain disorders involving the immune mechanism
CPT/HCPCS: 36415; 80053; 80061; 83020; 83036; 84439; 84443

== ENCOUNTER 2023-01-27 01:14 | Outpatient (CLI) | payer BC, SELFPAY ==
--- NOTE | 2023-01-27 08:00 | DI.MAMMO_ITS ---
Exam(s) MAMMO SCREENING EXAM: MAMMO SCREENING CLINICAL HISTORY: screening,Z12.39 TECHNIQUE: Bilateral full field digital CC and MLO mammographic images were obtained with 3D tomosyn thesis and utilizing computer aided detection (CAD). COMPARISON: Available for comparison. FINDINGS: Masses/Architectural Distortion: None seen. There is again seen a biopsy clip in the upper inner quad rant of the left breast. Microcalcifications: No suspicious pleomorphic-type are seen. Skin Thickening/Nipple Retraction: None. IMPRESSION: 1. No significant interval change with no specific features of malignancy noted. 2. Unless there is more urgent need, screening mammography is recommended, as per [employer] guidelines. BI-RADS Category 1 - Negative Breast Density - Category C - Heterogeneously dense Breast density category C or D implies that the patient has dense breast tissue. Dense breast tissue is very common and is not abnormal but dense breast tissue can make it harder to find cancer on a ma mmogram. Also, dense breast tissue may increase their breast cancer risk. This information about the result of the mammogram report was provided to the patient to raise their awareness. Use this report when you speak with the patient about their risks for breast cancer, which includes their family hist ory. At that time, you may recommend for more screening tests (Ultrasound or MRI) as they might be us eful based on their risk. A negative radiographic report should not delay biopsy if a dominant or clinically suspicious mass is present. Up to ten percent of cancers are not identified on mammography. A negative report may reinforce clinical impression. Adenosis and dense breasts may obscure an underlying neoplasm. False positive reports average 6 to 10%. Patient will receive a letter notifying them of these results.
== END 2023-01-27 01:34 ==
LOC: DI 01:15
PROVIDERS: PCP Nurse Practitioner Family; Visit Provider Nurse Practitioner Family
DX: Z12.31 Encounter for screening mammogram for malignant neoplasm of breast (principal)
CPT/HCPCS: 77063; 77067

== ENCOUNTER 2023-03-26 01:53 | Outpatient (CLI) | payer BC, SELFPAY ==
[2023-03-26 17:54] LABS: TSH 0.27 uIU/mL (0.36-3.74)
== END 2023-03-26 01:54 | disposition home or self-care (01) ==
LOC: LBO 01:53
PROVIDERS: PCP Nurse Practitioner Family; Visit Provider Nurse Practitioner Family
DX: E03.9 Hypothyroidism, unspecified (principal)
CPT/HCPCS: 36415; 84439; 84443

== ENCOUNTER 2023-08-04 12:45 | Emergency (ER) | payer BC, SELFPAY ==
--- NOTE | 2023-08-04 12:45 | RT.EKG_ITS ---
APPROVED REPORT Exam: Resting ECG Reason for Exam: back and chest pain Patient Location: E HR:86 bpm ECG Measurements Heart Rate 86 AXIS FL 173 P 53 QRSd 90 QRS 43 QT 365 T 46 QTc 436 Conclusion Sinus rhythm...normal P axis, V-rate 60- 99
[2023-08-04 12:49] VITALS: BP 119/72; PULSE 89; RESP 18; TEMP 36.7; O2SAT 99
--- NOTE | 2023-08-04 13:00 | DI.CT_ITS ---
Exam(s) CT CHEST PE CTA EXAM: CT CHEST PE CTA CLINICAL HISTORY: dyspnea, upper back pain. TECHNIQUE: Imaging Protocol: Axial CT angiography was performed with multi-slice acquisition and mu lti-planar reconstructions as well as axial, coronal and sagittal MIP reconstructions. CONTRAST MATERIAL: Intravenous: Omnipaque 350 Contrast volume:100 ml COMPARISON: CT CT CHEST LUNG CANCER SCREEN from 02/16/2023 FINDINGS: Pulmonary Arteries: No evidence of filling defect to suggest pulmonary emboli. Tracheobronchial tree: Patent where visualized. Mediastinum and [place]ash[place]: No dominant adenopathy or fluid collection. Pulmonary parenchyma: Expiratory changes. [id number] emphysematous changes. No consolidation or dominant measurable mass. Pleura: No effusion or pneumothorax. Heart: The heart is not dilated. No coronary artery calcifications are seen. Aorta: Thoracic aorta non-dilated. No aneurysm. No dissection. Upper abdomen: Gallstone. Noted on prior chest CT. No evidence gallbladder wall thickening or bili dawson dilatation. Bones: Unremarkable for age. Tubes, Catheters, and Lines: None IMPRESSION: No evidence of pulmonary embolism or other acute abnormality.. RADIATION DOSE DELIVERED: 493.41mGy.cm Total DLP DATA REPOSITORY: All CT scans at this facility are submitted to the National Radiology Data Registry (NRDR) Dose Index Registry (DIR) with the [employer] (ACR). RADIATION OPTIMIZATION: All CT scans at this facility use at least one of these dose optimization te chniques: automated exposure control; mA and/or kV adjustment per patient size (includes targeted exa ms where dose is matched to clinical indication); or iterative reconstruction.
--- NOTE | 2023-08-04 13:11 | W.ED.GENAD ---
Discharge Plan Disposition Patient Disposition: Home Condition: Stable Discharge Details Clinical Impression: Upper back pain on left side, Shortness of breath Primary Care Provider: Arianne Walker ED Provider: Mundo Braun Home Meds and New Rx's Prescriptions: Continued ibuprofen 200 mg tablet 600 mg PO TID PRN (Reason: pain) Qty: 90 4RF Rx Instructions: After meals ondansetron HCl 8 mg tablet 8 mg PO TID PRN (Reason: nausea and vomiting) Qty: 60 0RF Dulera 100-5 mcg/actuation HFA aerosol inhaler 2 inh inhalation BID Qty: 13 3RF sumatriptan succinate 50 mg tablet 50 mg PO ONCE PRN (Reason: migraine headache) Qty: 90 1RF Rx Instructions: Take 1 tablet at first onset of migraine headache, may repeat in 1-2hrs if still present omeprazole 20 mg capsule,delayed release(DR/EC) 40 mg PO DAILY Qty: 90 0RF baclofen 20 mg tablet 20 mg PO TID PRN (Reason: muscle spasm) Qty: 90 3RF albuterol sulfate 90 mcg/actuation HFA aerosol inhaler 2 inh inhalation Q6H PRN (Reason: shortness of breath or wheezing) Qty: 18 4RF ipratropium-albuterol 0.5 mg-3 mg(2.5 mg base)/3 mL solution for nebulization 3 ml inhalation Q4H PRN (Reason: wheezing) Qty: 180 0RF levothyroxine 125 mcg tablet 125 mcg PO DAILY Qty: 90 3RF vortioxetine 10 mg tablet 10 mg PO DAILY Qty: 90 3RF promethazine 25 mg tablet 25 mg PO Q6H PRN (Reason: nausea and vomiting) Qty: 60 2RF diazepam [Valium] 2 mg tablet 1 mg PO QHS PRN (Reason: anxiety and sleep) Qty: 14 2RF Rx Instructions: Half a tablet at bedtime IF NEEDED for anxiety and sleep nicotine (polacrilex) 4 mg gum 4 mg buccal Q2H MDD 24 PRN (Reason: nicotine cravings) Qty: 100 4RF Rx Instructions: Weeks 1-6: 1 every 1-2hrs Weeks 7-9: 1 every 2-4hrs Weeks 10-12: 1 every 4-8hrs nicotine 21 mg/24 hr patch 24 hour 1 patch transdermal DAILY Qty: 42 0RF Rx Instructions: Apply 1 patch daily for 6 weeks nicotine 7 mg/24 hr patch 24 hour 1 patch transdermal DAILY 14 Days Qty: 14 6RF Rx Instructions: Apply 1 patch daily for 2 wks after 14mg patch Discharge Instructions Instructions: Dyspnea (ED), Back Pain (ED) Additional Instructions: your ekg, blood work and cat scan did not show any significant findings follow up with your primary care provider within 1 week if you feel more ill, have severe worsening pain or worsening trouble breathing return to the emergency department Medical Decision Making 57 yo female with hx of smoking, gerd, anxiety, who comes in with cc of left upper back pain and hard to take deep breaths for 2 days. Denies fevers, chills, chest pain, abdominal pain, diaphoresis, n/v. She arrives stable speaking clearly caox4. she has tenderness with palpation to the left upper back over the scapula, no palpable or visible deformities. Clear lungs, no jvd, soft abdomen, no leg swelling. Unclear etiology for her symptoms, will proceed with ecg/troponin, cbc, cmp and cta of the chest to eval for PE. labs unremarkable, given 2 days of symptoms do not feel delta troponin indicated, ct negative. Pt stable and feels better, stable for d/c return precautions given Differential Diagnosis Differential Diagnosis: PE, musculoskeletal pain, ptx Medical Records Medical records reviewed: Yes I reviewed the patient's medical records. Imaging Data Radiologic Study: Attestation: I personally reviewed and interpreted this imaging study as follows: Imaging: CT Scan Radiologist's impression: no acute findings Lab Data Lab results reviewed: Yes I reviewed the patient's lab results. ECG Data Attestation: I personally reviewed and interpreted this ECG (s) as follows: Prior ECG tracings: not available for review Interpretation: sinus rate of 86, pr 173, no acute ischemic findings HPI General Mode of arrival: ambulatory. Date/Time Provider Initiated Documentation: 08/04/23 12:57. Limitations to Documentation: no limitations. Information obtained by: patient. History of Present Illness 57 year old F presents to the emergency department with the chief complaint of shortness of breath, upper back pain, described as moderate, Patient started experiencing this day(s) (2) and it has been constant. No relieving factors improve symptom(s), No exacerbating factors reported . Patient notes denies chest pain and fever/chills. Patient did receive the following treatments prior to arrival, none Related Data Home Medications Medication Instructions Recorded Confirmed ibuprofen 200 mg tablet 600 mg PO TID PRN pain #90 tabs 09/27/18 08/04/23 baclofen 20 mg tablet 20 mg PO TID PRN muscle spasm #90 11/19/21 08/04/23 tabs albuterol sulfate 90 mcg/actuation 2 inh inhalation Q6H PRN shortness 05/26/22 08/04/23 aerosol inhaler of breath or wheezing #18 grams ipratropium 0.5 mg-albuterol 3 mg 3 ml inhalation Q4H PRN wheezing 09/17/22 08/04/23 (2.5 mg base)/3 mL nebulization #180 mL soln mometasone-formoterol HFA 100 2 inh inhalation BID #13 grams 10/30/22 08/04/23 mcg-5 mcg/actuation aerosol inhaler (Dulera) omeprazole 20 mg capsule,delayed 40 mg PO DAILY #90 caps 10/30/22 08/04/23 release sumatriptan succinate 50 mg tablet 50 mg PO ONCE PRN migraine 10/30/22 08/04/23 headache #90 tabs ondansetron HCl 8 mg tablet 8 mg PO TID PRN nausea and 11/27/22 08/04/23 vomiting #60 tabs levothyroxine 125 mcg tablet 125 mcg PO DAILY #90 tab-caps 12/09/22 08/04/23 vortioxetine 10 mg tablet 10 mg PO DAILY #90 tabs 03/01/23 08/04/23 promethazine 25 mg tablet 25 mg PO Q6H PRN nausea and 04/05/23 08/04/23 vomiting #60 tabs diazepam 2 mg tablet (Valium) 1 mg PO QHS PRN anxiety and sleep 05/31/23 08/04/23 #14 tab-caps nicotine (polacrilex) 4 mg gum 4 mg buccal Q2H PRN nicotine 07/15/23 08/04/23 cravings #100 ea nicotine 21 mg/24 hr daily 1 patch transdermal DAILY #42 ea 07/15/23 08/04/23 transdermal patch nicotine 7 mg/24 hr daily 1 patch transdermal DAILY 2 weeks 07/15/23 08/04/23 transdermal patch #14 ea Previous Rx's Medication Instructions Recorded ibuprofen 200 mg tablet 600 mg PO TID PRN pain #90 tabs 09/27/18 baclofen 20 mg tablet 20 mg PO TID PRN muscle spasm #90 11/19/21 tabs albuterol sulfate 90 mcg/actuation 2 inh inhalation Q6H PRN shortness 05/26/22 aerosol inhaler of breath or wheezing #18 grams ipratropium 0.5 mg-albuterol 3 mg 3 ml inhalation Q4H PRN wheezing 09/17/22 (2.5 mg base)/3 mL nebulization #180 mL soln mometasone-formoterol HFA 100 2 inh inhalation BID #13 grams 10/30/22 mcg-5 mcg/actuation aerosol inhaler (Dulera) omeprazole 20 mg capsule,delayed 40 mg PO DAILY #90 caps 10/30/22 release sumatriptan succinate 50 mg tablet 50 mg PO ONCE PRN migraine 10/30/22 headache #90 tabs ondansetron HCl 8 mg tablet 8 mg PO TID PRN nausea and 11/27/22 vomiting #60 tabs levothyroxine 125 mcg tablet 125 mcg PO DAILY #90 tab-caps 12/09/22 vortioxetine 10 mg tablet 10 mg PO DAILY #90 tabs 03/01/23 promethazine 25 mg tablet 25 mg PO Q6H PRN nausea and 04/05/23 vomiting #60 tabs diazepam 2 mg tablet (Valium) 1 mg PO QHS PRN anxiety and sleep 05/31/23 #14 tab-caps nicotine (polacrilex) 4 mg gum 4 mg buccal Q2H PRN nicotine 07/15/23 cravings #100 ea nicotine 21 mg/24 hr daily 1 patch transdermal DAILY #42 ea 07/15/23 transdermal patch nicotine 7 mg/24 hr daily 1 patch transdermal DAILY 2 weeks 07/15/23 transdermal patch #14 ea Allergies Allergy/AdvReac Type Severity Reaction Status Date / Time Penicillins Allergy Severe Anaphylaxsi Verified 08/04/23 14:03 s adhesive Allergy Intermediate CAUSES Verified 08/04/23 14:03 BLISTERS Sulfa (Sulfonamide Allergy Unknown GI UPSET; Verified 08/04/23 14:03 Antibiotics) RASH levofloxacin [From Levaquin] Allergy Other (See Verified 08/04/23 14:03 Comment) duloxetine AdvReac Severe INCREASED Verified 08/04/23 14:03 DEPRESSION; INCREASED ANXIETY paroxetine AdvReac Severe Extreme Verified 08/04/23 14:03 irritability varenicline [From Chantix] AdvReac Severe Suicidal Verified 08/04/23 14:03 ideation albuterol AdvReac Intermediate anxiety/heart Verified 08/04/23 14:03 racing diphenhydramine AdvReac Intermediate MAKES Verified 08/04/23 14:03 HEART RACE doxylamine AdvReac Intermediate RESTLESSNES Verified 08/04/23 14:03 S pseudoephedrine AdvReac Intermediate RESTLESSNES Verified 08/04/23 14:03 S codeine AdvReac Unknown URTICARIA; Verified 08/04/23 14:03 TACHYCARDIA ketorolac AdvReac Unknown Verified 08/04/23 14:03 dextromethorphan AdvReac RESTLESSNES Verified 08/04/23 14:03 S General Stated Complaint: Nk/Back Pain ZEV: 3 Review of Systems All systems reviewed & are unremarkable except as noted in HPI and below Constitutional Constitutional: Denies chills, Denies fever(s) and Denies weakness Cardiovascular Cardiovascular: Denies chest pain and Reports dyspnea Respiratory Respiratory: Denies cough and Reports dyspnea Gastrointestinal Gastrointestinal: Denies abdominal pain, Denies nausea and Denies vomiting Neurologic Neurologic: Denies weakness PFSH All Active Problems Upper back pain on left side (Acute) Shortness of breath (Acute) Emphysema lung (Acute) Post-COVID chronic cough (Chronic) Trigger finger of right thumb (Acute) De Quervain's tenosynovitis, right (Acute) Low mean corpuscular volume (MCV) (Acute) Chronic, patient has a family history of thalassemia. Suspect that she carries the trait Lumbar spondylosis (Chronic) Prediabetes (Chronic) Lumbar back pain with radiculopathy affecting right lower extremity (Chronic) Hypothyroidism (Chronic) Hyperlipidemia (Chronic) GERD (gastroesophageal reflux disease) (Chronic) Major depressive disorder (Chronic) Generalized anxiety disorder with panic attacks (Chronic) Fibrocystic disease of breast (Chronic) Migraine headache without aura (Chronic) Cigarette smoker (Chronic) Annual LDCT Medical History (Updated 08/04/23 @ 14:21 by Mundo Braun MD) COVID-19 (~08/24/22) Endometriosis Kidney stone Nodule of upper lobe of right lung Suspicious RUL nodule on 10/[address], repeat in 03/06 with stable appearance, recommended to repeat in 1yr Surgical History History of carpal tunnel surgery of right wrist Hx of lithotripsy S/P appendectomy S/P section S/P BRIAN-BSO (total abdominal hysterectomy and bilateral salpingo-oophorectomy) For endometriosis S/P tonsillectomy Family History Mother , 78 COPD (chronic obstructive pulmonary disease) Diabetes Atrial fibrillation Father , metastatic lung cancer at 62 Metastatic primary lung cancer Sister , at 50 from P.E. Clotting disorder Depression Son WPW (Nipjx-Grfdculmm-Lgngo syndrome) Daughter Depression Maternal Grandfather No problems noted. Maternal Grandmother No problems noted. Paternal Grandfather No problems noted. Paternal Grandmother No problems noted. Maternal Uncle Thalassemia Social History Smoking/Tobacco Use Status: Current every day Tobacco Type: cigarettes Smoking packs per day: 1 Smoking cigarettes per day: 20.0 Years smoked: 39 Smoking pack-years: 39.00 Tobacco: How many years used: 30 Quit status: considering quitting Smoking risk assessment performed?: Yes Alcohol Intake: current Alcohol Intake frequency: holidays/special occasions only Drug use: Never Substance use type: does not use Caregiver/Support person: No Household members: spouse and children Housing: house Number of Children: 2 Pets and animals: Yes Pets and animals: cat(s) and dog(s) Sexually active: Yes What is your relationship status?: Panel score (0-1 are the most socially isolated patients): 1 What type of physical activity do you participate in: walking Duration: < 15 minutes/day Frequency: 1-2 times per week Danay/Amish: Spiritism Seatbelt use: always Helmet use: Yes Helmet use: always Drive intox or ride w/intox hazardous materials tanker driver: No Do you feel safe at home: Yes Do you feel safe in your relationship?: Yes Female Reproductive History Menstrual Menopause type: surgical Exam Const General: no acute distress Orientation: alert HENWI Head: normal to inspection Ears: external ears normal General nose exam: external nose normal Mouth: moist mucous membranes Eyes General: appearance normal, both eyes and all related structures Neck Neck: normal visual inspection Resp Effort & Inspection: normal respiratory effort and able to speak in complete sentences Auscultation: clear to auscultation bilaterally Cardio Jugular venous pressure: no JVD Rate: regular rate Heart Sounds: no murmurs GI Palpation: soft and nontender Skin General skin exam: no rashes or lesions noted Neuro General: patient alert and patient oriented x3 Extrem General: normal to inspection Psych Mental Status: mental status grossly normal Course Vital Signs Vital signs: Vital Signs Temperature 36.7 C 08/04/23 12:49 Pulse 89 08/04/23 12:49 Respiratory Rate 18 08/04/23 12:49 Blood Pressure 119/72 08/04/23 12:49 Pulse Oximetry 99 08/04/23 12:49 Temperature 36.7 C 08/04/23 12:49 Temperature Source Skin 08/04/23 12:49 Pulse 89 08/04/23 12:49 Respiratory Rate 18 08/04/23 12:49 Respiratory Effort Normal 08/04/23 12:51 Blood Pressure 119/72 08/04/23 12:49 Blood Pressure Position Sitting 08/04/23 12:49 Pulse Oximetry 99 08/04/23 12:49 Oxygen Delivery Method Room Air 08/04/23 12:49 Oxygen Flow Rate 0 08/04/23 12:49 Pain Level 3 08/04/23 13:05
[2023-08-04 13:26] LABS: Source Nasal/Nares
[2023-08-04] MEDS: fentaNYL 100 MCG/2 ML VIAL 50 MCG IVP (13:29)
[2023-08-04 13:47] LABS: Abs Immature Grans 0.02 10^3/uL (0.0-0.06); Absolute Basophil Count 0.05 10^3/uL (0.0-0.2); Absolute Eosinophil Count 0.13 10^3/uL (0.0-0.7); Absolute Lymphocyte Count 2.26 10^3/uL (1.2-3.4); Absolute Monocyte Count 0.44 10^3/uL (0.1-0.8); Absolute Neutrophil Count 5.28 10^3/uL (1.2-6.7); Basophils % 0.6; Eosinophils % 1.6; HCT 41.2 % (36.0-46.0); HGB 13.2 g/dL (11.2-15.7); Immature Grans % 0.2; Lymphocytes % 27.6; MCH 23.3 pg (27.0-33.0); MCV 73 fL (80-95); MPV 9.6 fL (8.0-11.0); Monocytes % 5.4; Neutrophils % 64.6; RBC 5.67 10^6/uL (3.93-5.22); RDW 15.9 % (11.7-14.6); RDW-SD 40.8 fL; WBC 8.18 10^3/uL (4.4-10.8)
[2023-08-04 13:52] LABS: ALT 40 U/L (14-59); AST 24 U/L (15-37); Alkaline Phosphatase 111 U/L (46-116); Anion Gap 9.4 mmol/L (3-11); BUN 19 mg/dL (7-18); Bilirubin, Total 0.3 mg/dL (0.2-1.0); CO2 24.6 mmol/L (21.0-32.0); CREATININE 0.6 mg/dL (0.55-1.02); Calcium 9.6 mg/dL (8.5-10.1); Chloride 105 mmol/L (98-107); Estimated GFR 104.63 (mL/min/1.73m2); Glucose 104 mg/dL (74-106); Lipase 30 U/L (16-77); Magnesium 1.8 mg/dL (1.8-2.4); Potassium 3.9 mmol/L (3.5-5.1); Sodium 139 mmol/L (136-145); TSH (W/Ref FT4) 0.33 uIU/mL (0.36-3.74); Total Protein 7.7 g/dL (6.4-8.2)
[2023-08-04 13:53] LABS: Troponin I < 50 ng/L (<or=60)
[2023-08-04 14:01] LABS: COVID-19 PCR Negative (Negative)
[2023-08-04] MEDS: Omnipaque 350 MG/ML 100 ML BTL IJ (14:04)
[2023-08-04] MEDS: Normal Saline - Diluent 50 ML VIAL IJ (14:05)
[2023-08-04 14:09] LABS: FREE T4 1.21 ng/dL (0.76-1.46)
[2023-08-04 14:18] LABS: Diff Comment Diff Reviewed; Microcytosis 1+; Platelet Count 305 10^3/uL (130-400)
[2023-08-04 14:39] VITALS: BP 125/66; PULSE 73; RESP 11; O2SAT 96
== END 2023-08-04 14:40 | disposition home or self-care (01) ==
PROVIDERS: Emergency Provider Emergency Medicine; PCP Nurse Practitioner Family
DX: M54.9 Dorsalgia, unspecified (principal); Z20.822 Contact with and (suspected) exposure to COVID-19; R07.9 Chest pain, unspecified; R06.00 Dyspnea, unspecified; R06.02 Shortness of breath; F17.200 Nicotine dependence, unspecified, uncomplicated
CPT/HCPCS: 36415; 71275; 80053; 83690; 87635; 93005; 96374; 99285; 83735; 84439; 84443; 84484; 85025; 93010; J3010; J3490

== ENCOUNTER 2023-11-19 02:51 | Outpatient (CLI) | payer BC, SELFPAY ==
[2023-11-19 17:02] LABS: Hemoglobin A1C 5.8 % (<5.7)
[2023-11-19 17:31] LABS: Anion Gap 11.4 mmol/L (3-11); BUN 12 mg/dL (7-18); CO2 24.6 mmol/L (21.0-32.0); CREATININE 0.7 mg/dL (0.55-1.02); Calcium 9.2 mg/dL (8.5-10.1); Calculated LDL 166 mg/dL (<100); Chloride 104 mmol/L (98-107); Cholesterol 234 mg/dL (<200); Estimated GFR 100.81 (mL/min/1.73m2); Glucose 114 mg/dL (74-106); HDL Cholesterol 55 mg/dL (40-60); Potassium 4.1 mmol/L (3.5-5.1); Sodium 140 mmol/L (136-145); Triglyceride 69 mg/dL (<150)
[2023-11-22 10:07] LABS: Hepatitis C Ab w Rflx HCV PCR Negative (Negative)
== END 2023-11-19 02:52 | disposition home or self-care (01) ==
PROVIDERS: PCP Nurse Practitioner Family; Visit Provider Nurse Practitioner Family
DX: E03.9 Hypothyroidism, unspecified (principal); E78.5 Hyperlipidemia, unspecified
CPT/HCPCS: 36415; 80048; 80061; 86803; 83036; 84443

== ENCOUNTER 2023-12-08 16:47 | Emergency (ER) | payer BC, SELFPAY ==
[2023-12-08] VITALS (28 sets, daily range): BP systolic 80–157; BP diastolic 54–139; PULSE 57–85; RESP 15; TEMP 37.6; O2SAT 93–98
--- NOTE | 2023-12-08 | DI.CT_ITS ---
Exam(s) CT ABDOMEN PELVIS W EXAM: CT ABDOMEN PELVIS W CLINICAL HISTORY: right upper quad pain TECHNIQUE: Imaging Protocol: Axial computed tomography images with coronal and sagittal reformatted images were created and reviewed CONTRAST MATERIAL: Intravenous: Omnipaque 350 Contrast volume:100 mL Oral: No COMPARISON: CT RENAL COLIC WO CONTRAST from 11/22/[address] CHEST LUNG CANCER SCREEN from 02/16/[address] CHEST PE CTA from 08/04/2023 FINDINGS: ABDOMEN: Lung Bases: No acute pulmonary process. Liver: Normal density. No measurable mass. Portal, Superior Mesenteric, and Splenic Veins: Unremarkable. Gallbladder and Biliary Tract: Cholelithiasis. No biliary ductal dilatation. There is no gallbladde r wall thickening or pericholecystic fluid. Pancreas: Normal density, no abnormal calcifications or inflammatory process. Spleen: Normal. Adrenals: No masses seen. Kidneys: Normal size, contour and axis. 3 mm nonobstructing stone in the lower pole of the left kidne y. No hydronephrosis. No masses seen. Abdominal Aorta: Abdominal portion non-dilated. Atherosclerosis. Bowel: There is diverticulosis without evidence of diverticulitis. There is no bowel wall thickening or obstruction. There is a diverticulum associated with the 2nd portion of the duodenum. No eviden ce of appendicitis. Peritoneal Cavity: No ascites, collection or mesenteric inflammatory response. No free air. Lymph Nodes: Within normal limits. Bones: Within normal limits for the patient's age. Soft Tissues: Unremarkable. PELVIS: Bladder: Symmetric distention, no gross wall thickening. Reproductive Organs: Status post hysterectomy. Lymph Nodes: Within normal limits. Bones: Within normal limits for the patient's age. IMPRESSION: 1. Cholelithiasis. No CT evidence of cholecystitis. No biliary ductal dilatation. 2. Duodenal diverticulum. 3. Left nephrolithiasis. No obstructive uropathy. 4. Colonic diverticulosis without evidence of diverticulitis. RADIATION DOSE DELIVERED: 1,007.89mGy.cm Total DLP DATA REPOSITORY: All CT scans at this facility are submitted to the National Radiology Data Registry (NRDR) Dose Index Registry (DIR) with the [employer] (ACR). RADIATION OPTIMIZATION: All CT scans at this facility use at least one of these dose optimization te chniques: automated exposure control; mA and/or kV adjustment per patient size (includes targeted exa ms where dose is matched to clinical indication); or iterative reconstruction.
[2023-12-08] MEDS: Lactated Ringers 1,000 ML 1000 ML IV (17:17)
[2023-12-08 17:18] LABS: Abs Immature Grans 0.02 10^3/uL (0.0-0.06); Absolute Basophil Count 0.09 10^3/uL (0.0-0.2); Absolute Eosinophil Count 0.33 10^3/uL (0.0-0.7); Absolute Lymphocyte Count 2.88 10^3/uL (1.2-3.4); Absolute Monocyte Count 0.58 10^3/uL (0.1-0.8); Absolute Neutrophil Count 4.64 10^3/uL (1.2-6.7); Basophils % 1.1; Eosinophils % 3.9; HCT 42.8 % (36.0-46.0); HGB 13.6 g/dL (11.2-15.7); Immature Grans % 0.2; Lymphocytes % 33.7; MCH 23.2 pg (27.0-33.0); MCHC 31.8 % (32.0-36.0); MCV 73 fL (80-95); MPV 9.5 fL (8.0-11.0); Monocytes % 6.8; Neutrophils % 54.3; Platelet Count 327 10^3/uL (130-400); RBC 5.85 10^6/uL (3.93-5.22); RDW 14.8 % (11.7-14.6); RDW-SD 38.6 fL; WBC 8.54 10^3/uL (4.4-10.8)
[2023-12-08] MEDS: Ondansetron 4 MG/2 ML VIAL IVP (17:18)
[2023-12-08] MEDS: Normal Saline - Diluent 50 ML VIAL IJ (17:32)
[2023-12-08 17:33] LABS: Diff Comment RBC Morph Reviewed; Lipase 24 U/L (16-77); Microcytosis 1+
[2023-12-08] MEDS: Normal Saline Flush 10 ML SYR IVP (17:33)
[2023-12-08 17:36] LABS: ALT 27 U/L (14-59); AST 14 U/L (15-37); Albumin 4.3 g/dL (3.4-5.0); Alkaline Phosphatase 105 U/L (46-116); Anion Gap 13.2 mmol/L (3-11); BUN 22 mg/dL (7-18); Bilirubin, Total 0.2 mg/dL (0.2-1.0); CO2 25.8 mmol/L (21.0-32.0); CREATININE 0.8 mg/dL (0.55-1.02); Calcium 9.9 mg/dL (8.5-10.1); Chloride 103 mmol/L (98-107); Estimated GFR 85.35 (mL/min/1.73m2); Glucose 104 mg/dL (74-106); Magnesium 2.2 mg/dL (1.8-2.4); Potassium 4.1 mmol/L (3.5-5.1); Sodium 142 mmol/L (136-145)
[2023-12-08] MEDS: Omnipaque 350 MG/ML 100 ML BTL IJ (17:36)
[2023-12-08] MEDS: HYDROmorphone 2 MG/ML SYR 0.5 MG IVP (17:47)
[2023-12-08 18:26] LABS: Bilirubin Negative (Negative); Blood Trace-intact (Negative); Clarity Clear (Clear); Glucose Negative (Negative); Ketones Negative (Negative); Leukocyte Esterase Negative (Negative); Nitrite Negative (Negative); Urobilinogen 0.2 mg/dL (Up to 0.2)
[2023-12-08 18:33] LABS: RBC 0-2 HPF (0-2); WBC 0-2 HPF (0-5)
[2023-12-08 18:34] LABS: Bacteria Rare HPF (Negative); C & S Indicated? No; Casts Negative LPF (Negative); Crystals Negative HPF (Negative); Epithelial Cells Rare HPF (Negative); Mucus Negative (Negative)
[2023-12-08] MEDS: Pantoprazole 40 MG VIAL IVP (18:40)
--- NOTE | 2023-12-08 18:45 | ED.GENADUL_ITS ---
HPI General Mode of arrival: ambulatory . Date/Time Provider Initiated Documentation: 12/08/23 16:57 . Limitations to Documentation: no limitations . Information obtained by: patient . HPI Narrative: Patient presents for a 1 week history of right upper quadrant pain. Denies any similar history. Denies any fever or chills she has had nausea no diarrhea or change in her bowel pattern no urinary complaints. denies any aggravating or alleviating factors, eating does not seem to make it worse. she last ate at lunch, grilled cheese sandwich, breakfast was a protein shake. she denies any similar history. states pain starts upper quad and radiates down Related Data Home Medications Medication Instructions Recorded Confirmed ibuprofen 200 mg tablet 600 mg (3 x 200 mg) PO TID PRN 09/27/18 12/08/23 pain #90 tabs albuterol sulfate 90 mcg/actuation 2 inh inhalation Q6H PRN shortness 05/26/22 12/08/23 aerosol inhaler of breath or wheezing #18 grams mometasone-formoterol HFA 100 2 inh inhalation BID #13 grams 10/30/22 12/08/23 mcg-5 mcg/actuation aerosol inhaler (Dulera) omeprazole 20 mg capsule,delayed 40 mg (2 x 20 mg) PO DAILY #90 caps 10/30/22 12/08/23 release ondansetron HCl 8 mg tablet 8 mg PO TID PRN nausea and 11/27/22 12/08/23 vomiting #60 tabs vortioxetine 10 mg tablet 10 mg PO DAILY #90 tabs 03/01/23 12/08/23 nicotine (polacrilex) 4 mg gum 4 mg buccal Q2H PRN nicotine 07/15/23 12/08/23 cravings #100 ea nicotine 21 mg/24 hr daily 1 patch transdermal DAILY #42 ea 07/15/23 12/08/23 transdermal patch nicotine 7 mg/24 hr daily 1 patch transdermal DAILY 2 weeks 07/15/23 12/08/23 transdermal patch #14 ea promethazine 25 mg tablet 25 mg PO Q6H PRN nausea and 08/18/23 12/08/23 vomiting #60 tabs ipratropium 0.5 mg-albuterol 3 mg 3 ml inhalation Q4H PRN wheezing 08/20/23 12/08/23 (2.5 mg base)/3 mL nebulization #180 mL soln diazepam 2 mg tablet (Valium) 1 mg (1/2 x 2 mg) PO QHS PRN 11/17/23 12/08/23 anxiety and sleep #14 tab-caps levothyroxine 125 mcg tablet 125 mcg PO DAILY #90 tabs 11/17/23 12/08/23 sumatriptan succinate 50 mg tablet 50 mg PO ONCE PRN migraine 11/17/23 12/08/23 headache #90 tabs Ondansetron ODT, 3 tabs/btl 4 mg PO DISPENSE ##0 12/08/23 [Zofran ODT, 3 tabs/btl] Previous Rx's Medication Instructions Recorded ibuprofen 200 mg tablet 600 mg (3 x 200 mg) PO TID PRN 09/27/18 pain #90 tabs albuterol sulfate 90 mcg/actuation 2 inh inhalation Q6H PRN shortness 05/26/22 aerosol inhaler of breath or wheezing #18 grams mometasone-formoterol HFA 100 2 inh inhalation BID #13 grams 10/30/22 mcg-5 mcg/actuation aerosol inhaler (Dulera) omeprazole 20 mg capsule,delayed 40 mg (2 x 20 mg) PO DAILY #90 caps 10/30/22 release ondansetron HCl 8 mg tablet 8 mg PO TID PRN nausea and 11/27/22 vomiting #60 tabs vortioxetine 10 mg tablet 10 mg PO DAILY #90 tabs 03/01/23 nicotine (polacrilex) 4 mg gum 4 mg buccal Q2H PRN nicotine 07/15/23 cravings #100 ea nicotine 21 mg/24 hr daily 1 patch transdermal DAILY #42 ea 07/15/23 transdermal patch nicotine 7 mg/24 hr daily 1 patch transdermal DAILY 2 weeks 07/15/23 transdermal patch #14 ea promethazine 25 mg tablet 25 mg PO Q6H PRN nausea and 08/18/23 vomiting #60 tabs ipratropium 0.5 mg-albuterol 3 mg 3 ml inhalation Q4H PRN wheezing 08/20/23 (2.5 mg base)/3 mL nebulization #180 mL soln diazepam 2 mg tablet (Valium) 1 mg (1/2 x 2 mg) PO QHS PRN 11/17/23 anxiety and sleep #14 tab-caps levothyroxine 125 mcg tablet 125 mcg PO DAILY #90 tabs 11/17/23 sumatriptan succinate 50 mg tablet 50 mg PO ONCE PRN migraine 11/17/23 headache #90 tabs Ondansetron ODT, 3 tabs/btl 4 mg PO DISPENSE ##0 12/08/23 [Zofran ODT, 3 tabs/btl] Allergies Allergy/AdvReac Type Severity Reaction Status Date / Time Penicillins Allergy Severe Anaphylaxsi Verified 12/08/23 16:58 s adhesive Allergy Intermediate CAUSES Verified 12/08/23 16:58 BLISTERS Sulfa (Sulfonamide Allergy Unknown GI UPSET; Verified 12/08/23 16:58 Antibiotics) RASH levofloxacin [From Levaquin] Allergy Other (See Verified 12/08/23 16:58 Comment) duloxetine AdvReac Severe INCREASED Verified 12/08/23 16:58 DEPRESSION; INCREASED ANXIETY paroxetine AdvReac Severe Extreme Verified 12/08/23 16:58 irritability varenicline [From Chantix] AdvReac Severe Suicidal Verified 12/08/23 16:58 ideation albuterol AdvReac Intermediate anxiety/heart Verified 12/08/23 16:58 racing diphenhydramine AdvReac Intermediate MAKES Verified 12/08/23 16:58 HEART RACE doxylamine AdvReac Intermediate RESTLESSNES Verified 12/08/23 16:58 S pseudoephedrine AdvReac Intermediate RESTLESSNES Verified 12/08/23 16:58 S codeine AdvReac Unknown URTICARIA; Verified 12/08/23 16:58 TACHYCARDIA ketorolac AdvReac Unknown Verified 12/08/23 16:58 dextromethorphan AdvReac RESTLESSNES Verified 12/08/23 16:58 S General Stated Complaint: Abd Prob ZEV: 3 Review of Systems All systems reviewed & are unremarkable except as noted in HPI and below Course Vital Signs Vital signs: Vital Signs Temperature 37.6 C H 12/08/23 16:51 Pulse 85 12/08/23 16:51 Respiratory Rate 15 12/08/23 16:51 Blood Pressure 141/81 H 12/08/23 16:51 Pulse Oximetry 98 12/08/23 16:51 Temperature 37.6 C H 12/08/23 17:00 Temperature Source Tympanic 12/08/23 17:00 Pulse 66 12/08/23 18:31 Respiratory Rate 15 12/08/23 17:00 Respiratory Effort Normal, Non-Labored 12/08/23 17:00 Blood Pressure 126/71 12/08/23 18:31 Blood Pressure Mean 86 12/08/23 18:31 Blood Pressure Position Sitting 12/08/23 17:00 Pulse Oximetry 95 12/08/23 18:31 Oxygen Delivery Method Room Air 12/08/23 17:00 Oxygen Flow Rate 0 12/08/23 16:51 Pain Level 8 12/08/23 17:00 Lab/Test Results Lab/Test Results: Laboratory Tests Range/Units 12/08/23 12/08/23 17:07 18:15 WBC (4.4-10.8) 10^3/uL 8.54 RBC (3.93-5.22) 10^6/uL 5.85 H Hgb (11.2-15.7) g/dL 13.6 Hct (36.0-46.0) % 42.8 MCV (80-95) fL 73 L MCH (27.0-33.0) pg 23.2 L MCHC (32.0-36.0) % 31.8 L RDW (11.7-14.6) % 14.8 H Plt Count (130-400) 10^3/uL 327 MPV (8.0-11.0) fL 9.5 Immature Gran % 0.2 Neutrophils % 54.3 Lymphocytes % 33.7 Monocytes % 6.8 Eosinophils % 3.9 Basophils % 1.1 Nucleated RBC % (0.0-0.3) % 0.0 Absolute Neutrophils (1.2-6.7) 10^3/uL 4.64 Absolute Lymphocytes (1.2-3.4) 10^3/uL 2.88 Absolute Monocytes (0.1-0.8) 10^3/uL 0.58 Absolute Eosinophils (0.0-0.7) 10^3/uL 0.33 Absolute Basophils (0.0-0.2) 10^3/uL 0.09 RBC Morphology See Below Microcytosis 1+ Sodium (136-145) mmol/L 142 Potassium (3.5-5.1) mmol/L 4.1 Chloride (98-107) mmol/L 103 Carbon Dioxide (21.0-32.0) mmol/L 25.8 Anion Gap (3-11) mmol/L 13.2 H BUN (7-18) mg/dL 22 H Creatinine (0.55-1.02) mg/dL 0.8 Est GFR (CKD-EPI 2020) (mL/min/1.73m2) 85.35 Glucose (74-106) mg/dL 104 Calcium (8.5-10.1) mg/dL 9.9 Magnesium (1.8-2.4) mg/dL 2.2 Total Bilirubin (0.2-1.0) mg/dL 0.2 AST (15-37) U/L 14 L ALT (14-59) U/L 27 Alkaline Phosphatase (46-116) U/L 105 Total Protein (6.4-8.2) g/dL 8.0 Albumin (3.4-5.0) g/dL 4.3 Lipase (16-77) U/L 24 Urine Color (Yellow) Yellow Urine Clarity (Clear) Clear Urine pH (5-8) 6.0 Ur Specific [place] (1.005-1.025) 1.010 Urine Protein (Negative) mg/dL Negative Urine Ketones (Negative) mg/dL Negative Urine Blood (Negative) Trace-intact H Urine Nitrite (Negative) Negative Urine Bilirubin (Negative) Negative Urine Urobilinogen (Up to 0.2) mg/dL 0.2 Ur Leukocyte Esterase (Negative) Negative Urine RBC (0-2) HPF 0-2 Urine WBC (0-5) HPF 0-2 Ur Epithelial Cells (Negative) HPF Rare Urine Crystals (Negative) HPF Negative Urine Bacteria (Negative) HPF Rare Urine Casts (Negative) LPF Negative Urine Mucus (Negative) Negative Ur Culture Indicated? No Urine Glucose (Negative) mg/dL Negative Medical Decision Making Presents with complaints of right upper quadrant pain differentials include but not limited to cholecystitis, gastric ulcer, pancreatitis, renal colic/pyelonephritis, hepatitis. Will establish IV give 1 L of lactated Ringer's Dilaudid 0.5 mg IV push and Zofran 4 mg for symptoms. CAT scan of the abdomen pelvis with IV contrast obtained. Labs and CT scan are reviewed. patient received 2 doses of dilaudid with no significant improvement in symptoms. hemodynamically stable, tolerating oral liquids. given IV protonix 40 mg and gi cocktail, still no significant improvement. plan will be to discharge home with zofran 4 mg ODT tabs for home use overnight if needed. will be npo for ultrasound tomorrow am. will return to ED for reading, re-evaluation and discharge recommendations. Medical Records Medical records reviewed: Yes I reviewed the patient's medical records. Imaging Data Radiologic Study: Imaging: CT Scan Radiologist's impression: Exam(s) a CT:CT abdomen & pelvis w Exam(s) CT ABDOMEN PELVIS W EXAM: CT ABDOMEN PELVIS W CLINICAL HISTORY: right upper quad pain TECHNIQUE: Imaging Protocol: Axial computed tomography images with coronal and sagittal reformatted images were created and reviewed CONTRAST MATERIAL: Intravenous: Omnipaque 350 Contrast volume:100 mL Oral: No COMPARISON: CT RENAL COLIC WO CONTRAST from 11/22/[address] CHEST LUNG CANCER SCREEN from 02/16/[address] CHEST PE CTA from 08/04/2023 FINDINGS: ABDOMEN: Lung Bases: No acute pulmonary process. Liver: Normal density. No measurable mass. Portal, Superior Mesenteric, and Splenic Veins: Unremarkable. Gallbladder and Biliary Tract: Cholelithiasis. No biliary ductal dilatation. There is no gallbladder wall thickening or pericholecystic fluid. Pancreas: Normal density, no abnormal calcifications or inflammatory process. Spleen: Normal. Adrenals: No masses seen. Kidneys: Normal size, contour and axis. 3 mm nonobstructing stone in the lower pole of the left kidney. No hydronephrosis. No masses seen. Abdominal Aorta: Abdominal portion non-dilated. Atherosclerosis. Bowel: There is diverticulosis without evidence of diverticulitis. There is no bowel wall thickening or obstruction. There is a diverticulum associated with the 2nd portion of the duodenum. No evidence of appendicitis. Peritoneal Cavity: No ascites, collection or mesenteric inflammatory response. No free air. Lymph Nodes: Within normal limits. Bones: Within normal limits for the patient's age. Soft Tissues: Unremarkable. PELVIS: Bladder: Symmetric distention, no gross wall thickening. Reproductive Organs: Status post hysterectomy. Lymph Nodes: Within normal limits. Bones: Within normal limits for the patient's age. IMPRESSION: 1. Cholelithiasis. No CT evidence of cholecystitis. No biliary ductal di latation. 2. Duodenal diverticulum. 3. Left nephrolithiasis. No obstructive uropathy. 4. Colonic diverticulosis without evidence of diverticulitis. Lab Data Lab results reviewed: Yes I reviewed the patient's lab results. Lab results narrative: Laboratory Tests Range/Units 12/08/23 12/08/23 17:07 18:15 WBC (4.4-10.8) 10^3/uL 8.54 RBC (3.93-5.22) 10^6/uL 5.85 H Hgb (11.2-15.7) g/dL 13.6 Hct (36.0-46.0) % 42.8 MCV (80-95) fL 73 L MCH (27.0-33.0) pg 23.2 L MCHC (32.0-36.0) % 31.8 L RDW (11.7-14.6) % 14.8 H Plt Count (130-400) 10^3/uL 327 MPV (8.0-11.0) fL 9.5 Immature Gran % 0.2 Neutrophils % 54.3 Lymphocytes % 33.7 Monocytes % 6.8 Eosinophils % 3.9 Basophils % 1.1 Nucleated RBC % (0.0-0.3) % 0.0 Absolute Neutrophils (1.2-6.7) 10^3/uL 4.64 Absolute Lymphocytes (1.2-3.4) 10^3/uL 2.88 Absolute Monocytes (0.1-0.8) 10^3/uL 0.58 Absolute Eosinophils (0.0-0.7) 10^3/uL 0.33 Absolute Basophils (0.0-0.2) 10^3/uL 0.09 RBC Morphology See Below Microcytosis 1+ Sodium (136-145) mmol/L 142 Potassium (3.5-5.1) mmol/L 4.1 Chloride (98-107) mmol/L 103 Carbon Dioxide (21.0-32.0) mmol/L 25.8 Anion Gap (3-11) mmol/L 13.2 H BUN (7-18) mg/dL 22 H Creatinine (0.55-1.02) mg/dL 0.8 Est GFR (CKD-EPI 2020) (mL/min/1.73m2) 85.35 Glucose (74-106) mg/dL 104 Calcium (8.5-10.1) mg/dL 9.9 Magnesium (1.8-2.4) mg/dL 2.2 Total Bilirubin (0.2-1.0) mg/dL 0.2 AST (15-37) U/L 14 L ALT (14-59) U/L 27 Alkaline Phosphatase (46-116) U/L 105 Total Protein (6.4-8.2) g/dL 8.0 Albumin (3.4-5.0) g/dL 4.3 Lipase (16-77) U/L 24 Urine Color (Yellow) Yellow Urine Clarity (Clear) Clear Urine pH (5-8) 6.0 Ur Specific [place] (1.005-1.025) 1.010 Urine Protein (Negative) mg/dL Negative Urine Ketones (Negative) mg/dL Negative Urine Blood (Negative) Trace-intact H Urine Nitrite (Negative) Negative Urine Bilirubin (Negative) Negative Urine Urobilinogen (Up to 0.2) mg/dL 0.2 Ur Leukocyte Esterase (Negative) Negative Urine RBC (0-2) HPF 0-2 Urine WBC (0-5) HPF 0-2 Ur Epithelial Cells (Negative) HPF Rare Urine Crystals (Negative) HPF Negative Urine Bacteria (Negative) HPF Rare Urine Casts (Negative) LPF Negative Urine Mucus (Negative) Negative Ur Culture Indicated? No Urine Glucose (Negative) mg/dL Negative Quality:SDOH Health Related Social Needs: No Data to Display PFSH All Active Problems Right-sided abdominal pain of unknown etiology (Acute) Emphysema lung (Acute) Post-COVID chronic cough (Chronic) Trigger finger of right thumb (Acute) De Quervain's tenosynovitis, right (Acute) Low mean corpuscular volume (MCV) (Acute) Chronic, patient has a family history of thalassemia. Suspect that she carries the trait Lumbar spondylosis (Chronic) Prediabetes (Chronic) Lumbar back pain with radiculopathy affecting right lower extremity (Chronic) Hypothyroidism (Chronic) Hyperlipidemia (Chronic) GERD (gastroesophageal reflux disease) (Chronic) Major depressive disorder (Chronic) Generalized anxiety disorder with panic attacks (Chronic) Fibrocystic disease of breast (Chronic) Migraine headache without aura (Chronic) Cigarette smoker (Chronic) Annual LDCT Medical History (Updated 12/08/23 @ 19:26 by Kathie Bell NP) COVID-19 (~08/24/22) Nodule of upper lobe of right lung Endometriosis Kidney stone Surgical History History of carpal tunnel surgery of right wrist Hx of lithotripsy S/P tonsillectomy S/P appendectomy S/P section S/P BRIAN-BSO (total abdominal hysterectomy and bilateral salpingo-oophorectomy) For endometriosis Family History Mother , 78 COPD (chronic obstructive pulmonary disease) Diabetes Atrial fibrillation Father , metastatic lung cancer at 62 Metastatic primary lung cancer Sister , at 50 from P.E. Clotting disorder Depression Son WPW (Kbsxv-Vdmbpajdr-Pbbyf syndrome) Daughter Depression Maternal Grandfather No problems noted. Maternal Grandmother No problems noted. Paternal Grandfather No problems noted. Paternal Grandmother No problems noted. Maternal Uncle Thalassemia Social History Smoking/Tobacco Use Status: Current every day Tobacco Type: cigarettes Smoking packs per day: 1 Smoking cigarettes per day: 20.0 Years smoked: 39 Smoking pack- years: 39.00 Tobacco: How many years used: 30 Quit status: considering quitting Smoking risk assessment performed?: Yes Alcohol Intake: current Alcohol Intake frequency: holidays/special occasions only Drug use: Never Substance use type: does not use Caregiver/Support person: No Household members: spouse and children Housing: house Number of Children: 2 Pets and animals: Yes Pets and animals: cat(s) and dog(s) Sexually active: Yes What is your relationship status?: Panel score (0-1 are the most socially isolated patients): 1 What type of physical activity do you participate in: walking Duration: < 15 minutes/day Frequency: 1-2 times per week Danay/Voodoo: Nondenominational Seatbelt use: always Helmet use: Yes Helmet use: always Drive intox 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 Do you feel safe at home: Yes Do you feel safe in your relationship?: Yes Female Reproductive History Menstrual Menopause type: surgical Discharge Plan Disposition Patient Disposition: Home Condition: Stable Discharge Details Clinical Impression: Right-sided abdominal pain of unknown etiology Primary Care Provider: Arianne Walker ED Provider: Kathie Bell Home Meds and New Rx's Prescriptions: New Ondansetron Odt, 3 Tabs/Btl [Zofran Odt, 3 Tabs/Btl] 4 mg PO DISPENSE Qty: 0 0RF Continued ibuprofen 200 mg tablet 600 mg PO TID PRN (Reason: pain) Qty: 90 4RF Rx Instructions: After meals ondansetron HCl 8 mg tablet 8 mg PO TID PRN (Reason: nausea and vomiting) Qty: 60 0RF ipratropium-albuterol 0.5 mg-3 mg(2.5 mg base)/3 mL solution for nebulization 3 ml inhalation Q4H PRN (Reason: wheezing) Qty: 180 3RF Dulera 100-5 mcg/actuation HFA aerosol inhaler 2 inh inhalation BID Qty: 13 3RF omeprazole 20 mg capsule,delayed release(DR/EC) 40 mg PO DAILY Qty: 90 0RF albuterol sulfate 90 mcg/actuation HFA aerosol inhaler 2 inh inhalation Q6H PRN (Reason: shortness of breath or wheezing) Qty: 18 4RF vortioxetine 10 mg tablet 10 mg PO DAILY Qty: 90 3RF nicotine (polacrilex) 4 mg gum 4 mg buccal Q2H MDD 24 PRN (Reason: nicotine cravings) Qty: 100 4RF Rx Instructions: Weeks 1-6: 1 every 1-2hrs Weeks 7-9: 1 every 2-4hrs Weeks 10-12: 1 every 4-8hrs nicotine 21 mg/24 hr patch 24 hour 1 patch transdermal DAILY Qty: 42 0RF Rx Instructions: Apply 1 patch daily for 6 weeks nicotine 7 mg/24 hr patch 24 hour 1 patch transdermal DAILY 14 Days Qty: 14 6RF Rx Instructions: Apply 1 patch daily for 2 wks after 14mg patch promethazine 25 mg tablet 25 mg PO Q6H PRN (Reason: nausea and vomiting) Qty: 60 2RF levothyroxine 125 mcg tablet 125 mcg PO DAILY Qty: 90 0RF diazepam [Valium] 2 mg tablet 1 mg PO QHS PRN (Reason: anxiety and sleep) Qty: 14 2RF Rx Instructions: Half a tablet at bedtime IF NEEDED for anxiety and sleep sumatriptan succinate 50 mg tablet 50 mg PO ONCE PRN (Reason: migraine headache) Qty: 90 1RF Rx Instructions: Take 1 tablet at first onset of migraine headache, may repeat in 1-2hrs if still present Discharge Instructions Instructions: Abdominal Pain (ED) Additional Instructions: do not eat or drink anything after midnight in preparation for ultrasound tomorrow morning. call at 7 am to find out what time your appointment will be scheduled at. [phone] after your ultrasound you will go to the emergency department for reading for further recommendations. take zofran as directed if needed for nausea and vomiting. Referrals: Arianne Walker NP [Primary Care Provider] -
[2023-12-08] MEDS: Ondansetron O.D.T. 4 MG TABEF, 3 TABS/BTL PO (19:51)
--- NOTE | 2023-12-09 09:00 | NUR.NOTE ---
Addendum entered by Maite Vazquez 12/09/23 09:07: Order faxed for limited abd US for right upper quadrant pain, gallbladder to be done , follow up in ED. Original Note: Accessed pt chart to get information to fill out out pt order for US. Nursing Note:
== END 2023-12-08 19:53 | disposition home or self-care (01) ==
PROVIDERS: Emergency Provider Nurse Practitioner Acute Care; PCP Nurse Practitioner Family
DX: R10.11 Right upper quadrant pain (principal); F17.210 Nicotine dependence, cigarettes, uncomplicated
CPT/HCPCS: 80053; 83690; 96361; 96374; 96375; 99285; 74177; 81003; 81015; 83735; 85025; 99284; J1170; J2405; J2470; J3490

== ENCOUNTER 2023-12-09 10:32 | Emergency (ER) | payer BC, SELFPAY ==
[2023-12-09 10:43] VITALS: BP 105/63; PULSE 68; RESP 18; O2SAT 97
--- NOTE | 2023-12-09 11:11 | W.ED.GENAD ---
HPI General Mode of arrival: ambulatory. Date/Time Provider Initiated Documentation: 12/09/23 10:56. Limitations to Documentation: no limitations. Information obtained by: patient. HPI Narrative: 58-year-old female seen here last in the emerged part for abdominal pain over the past 1 week, found to have cholelithiasis on CT, ultrasound not available. Patient was instructed to return for ultrasound today. She is here seeking results of ultrasound. Related Data Home Medications Medication Instructions Recorded Confirmed ibuprofen 200 mg tablet 600 mg (3 x 200 mg) PO TID PRN 09/27/18 12/09/23 pain #90 tabs albuterol sulfate 90 mcg/actuation 2 inh inhalation Q6H PRN shortness 05/26/22 12/09/23 aerosol inhaler of breath or wheezing #18 grams mometasone-formoterol HFA 100 2 inh inhalation BID #13 grams 10/30/22 12/09/23 mcg-5 mcg/actuation aerosol inhaler (Dulera) omeprazole 20 mg capsule,delayed 40 mg (2 x 20 mg) PO DAILY #90 caps 10/30/22 12/09/23 release ondansetron HCl 8 mg tablet 8 mg PO TID PRN nausea and 11/27/22 12/09/23 vomiting #60 tabs vortioxetine 10 mg tablet 10 mg PO DAILY #90 tabs 03/01/23 12/09/23 nicotine (polacrilex) 4 mg gum 4 mg buccal Q2H PRN nicotine 07/15/23 12/09/23 cravings #100 ea nicotine 21 mg/24 hr daily 1 patch transdermal DAILY #42 ea 07/15/23 12/09/23 transdermal patch nicotine 7 mg/24 hr daily 1 patch transdermal DAILY 2 weeks 07/15/23 12/09/23 transdermal patch #14 ea promethazine 25 mg tablet 25 mg PO Q6H PRN nausea and 08/18/23 12/09/23 vomiting #60 tabs ipratropium 0.5 mg-albuterol 3 mg 3 ml inhalation Q4H PRN wheezing 08/20/23 12/09/23 (2.5 mg base)/3 mL nebulization #180 mL soln diazepam 2 mg tablet (Valium) 1 mg (1/2 x 2 mg) PO QHS PRN 11/17/23 12/09/23 anxiety and sleep #14 tab-caps levothyroxine 125 mcg tablet 125 mcg PO DAILY #90 tabs 11/17/23 12/09/23 sumatriptan succinate 50 mg tablet 50 mg PO ONCE PRN migraine 11/17/23 12/08/23 headache #90 tabs Ondansetron ODT, 3 tabs/btl 4 mg PO DISPENSE ##0 12/08/23 12/09/23 [Zofran ODT, 3 tabs/btl] Previous Rx's Medication Instructions Recorded ibuprofen 200 mg tablet 600 mg (3 x 200 mg) PO TID PRN 09/27/18 pain #90 tabs albuterol sulfate 90 mcg/actuation 2 inh inhalation Q6H PRN shortness 05/26/22 aerosol inhaler of breath or wheezing #18 grams mometasone-formoterol HFA 100 2 inh inhalation BID #13 grams 10/30/22 mcg-5 mcg/actuation aerosol inhaler (Dulera) omeprazole 20 mg capsule,delayed 40 mg (2 x 20 mg) PO DAILY #90 caps 10/30/22 release ondansetron HCl 8 mg tablet 8 mg PO TID PRN nausea and 11/27/22 vomiting #60 tabs vortioxetine 10 mg tablet 10 mg PO DAILY #90 tabs 03/01/23 nicotine (polacrilex) 4 mg gum 4 mg buccal Q2H PRN nicotine 07/15/23 cravings #100 ea nicotine 21 mg/24 hr daily 1 patch transdermal DAILY #42 ea 07/15/23 transdermal patch nicotine 7 mg/24 hr daily 1 patch transdermal DAILY 2 weeks 07/15/23 transdermal patch #14 ea promethazine 25 mg tablet 25 mg PO Q6H PRN nausea and 08/18/23 vomiting #60 tabs ipratropium 0.5 mg-albuterol 3 mg 3 ml inhalation Q4H PRN wheezing 08/20/23 (2.5 mg base)/3 mL nebulization #180 mL soln diazepam 2 mg tablet (Valium) 1 mg (1/2 x 2 mg) PO QHS PRN 11/17/23 anxiety and sleep #14 tab-caps levothyroxine 125 mcg tablet 125 mcg PO DAILY #90 tabs 11/17/23 sumatriptan succinate 50 mg tablet 50 mg PO ONCE PRN migraine 11/17/23 headache #90 tabs Ondansetron ODT, 3 tabs/btl 4 mg PO DISPENSE ##0 12/08/23 [Zofran ODT, 3 tabs/btl] Allergies Allergy/AdvReac Type Severity Reaction Status Date / Time Penicillins Allergy Severe Anaphylaxsi Verified 12/09/23 11:20 s adhesive Allergy Intermediate CAUSES Verified 12/09/23 11:20 BLISTERS Sulfa (Sulfonamide Allergy Unknown GI UPSET; Verified 12/09/23 11:20 Antibiotics) RASH levofloxacin [From Levaquin] Allergy Other (See Verified 12/09/23 11:20 Comment) duloxetine AdvReac Severe INCREASED Verified 12/09/23 11:20 DEPRESSION; INCREASED ANXIETY paroxetine AdvReac Severe Extreme Verified 12/09/23 11:20 irritability varenicline [From Chantix] AdvReac Severe Suicidal Verified 12/09/23 11:20 ideation albuterol AdvReac Intermediate anxiety/heart Verified 12/09/23 11:20 racing diphenhydramine AdvReac Intermediate MAKES Verified 12/09/23 11:20 HEART RACE doxylamine AdvReac Intermediate RESTLESSNES Verified 12/08/23 16:58 S pseudoephedrine AdvReac Intermediate RESTLESSNES Verified 12/09/23 11:20 S codeine AdvReac Unknown URTICARIA; Verified 12/09/23 11:20 TACHYCARDIA ketorolac AdvReac Unknown Verified 12/09/23 11:20 dextromethorphan AdvReac RESTLESSNES Verified 12/09/23 11:20 S General Stated Complaint: Recheck ZEV: 4 Exam Const General: comfortable and no acute distress Cardio Rate: regular rate Course Vital Signs Vital signs: Vital Signs Pulse 68 12/09/23 10:43 Respiratory Rate 18 12/09/23 10:43 Blood Pressure 105/63 12/09/23 10:43 Pulse Oximetry 97 12/09/23 10:43 Pulse 68 12/09/23 10:43 Respiratory Rate 18 12/09/23 10:43 Respiratory Effort Normal, Non-Labored 12/09/23 10:46 Blood Pressure 105/63 12/09/23 10:43 Blood Pressure Position Sitting 12/09/23 10:43 Pulse Oximetry 97 12/09/23 10:43 Oxygen Delivery Method Room Air 12/09/23 10:43 Oxygen Flow Rate 0 12/09/23 10:43 Medical Decision Making 58-year-old female was seen last night for abdominal pain, had CT imaging that showed cholelithiasis, labs did not reveal transaminitis and normal lipase, was instructed to return today for ultrasound of the right upper quadrant as this was not available last night. She presents here to the emergency department for review of her results. Ultrasound of the right upper quadrant was discussed with the radiologist who notes cholelithiasis, no pericholecystic fluid, no gallbladder wall thickening. Suspect biliary colic. Results were discussed with the patient. Plan for discharge with close outpatient follow-up with general surgery. Usual customary discharge instructions were reviewed with the patient. Quality:SDOH Health Related Social Needs: No Data to Display PFSH All Active Problems Cholelithiasis (Acute) Right-sided abdominal pain of unknown etiology (Acute) Emphysema lung (Acute) Post-COVID chronic cough (Chronic) Trigger finger of right thumb (Acute) De Quervain's tenosynovitis, right (Acute) Low mean corpuscular volume (MCV) (Acute) Chronic, patient has a family history of thalassemia. Suspect that she carries the trait Lumbar spondylosis (Chronic) Prediabetes (Chronic) Lumbar back pain with radiculopathy affecting right lower extremity (Chronic) Hypothyroidism (Chronic) Hyperlipidemia (Chronic) GERD (gastroesophageal reflux disease) (Chronic) Major depressive disorder (Chronic) Generalized anxiety disorder with panic attacks (Chronic) Fibrocystic disease of breast (Chronic) Migraine headache without aura (Chronic) Cigarette smoker (Chronic) Annual LDCT Medical History (Updated 12/09/23 @ 11:14 by Pedro Wheat MD) COVID-19 (~08/24/22) Nodule of upper lobe of right lung Endometriosis Kidney stone Surgical History History of carpal tunnel surgery of right wrist Hx of lithotripsy S/P tonsillectomy S/P appendectomy S/P section S/P BRIAN-BSO (total abdominal hysterectomy and bilateral salpingo-oophorectomy) For endometriosis Family History Mother , 78 COPD (chronic obstructive pulmonary disease) Diabetes Atrial fibrillation Father , metastatic lung cancer at 62 Metastatic primary lung cancer Sister , at 50 from P.E. Clotting disorder Depression Son WPW (Feqju-Zbeggynal-Xfhkf syndrome) Daughter Depression Maternal Grandfather No problems noted. Maternal Grandmother No problems noted. Paternal Grandfather No problems noted. Paternal Grandmother No problems noted. Maternal Uncle Thalassemia Social History Smoking/Tobacco Use Status: Current every day Tobacco Type: cigarettes Smoking packs per day: 1 Smoking cigarettes per day: 20.0 Years smoked: 39 Smoking pack-years: 39.00 Tobacco: How many years used: 30 Quit status: considering quitting Smoking risk assessment performed?: Yes Alcohol Intake: current Alcohol Intake frequency: holidays/special occasions only Drug use: Never Substance use type: does not use Caregiver/Support person: No Household members: spouse and children Housing: house Number of Children: 2 Pets and animals: Yes Pets and animals: cat(s) and dog(s) Sexually active: Yes What is your relationship status?: Panel score (0-1 are the most socially isolated patients): 1 What type of physical activity do you participate in: walking Duration: < 15 minutes/day Frequency: 1-2 times per week Danay/Baptist: Ep[employer]opalian Seatbelt use: always Helmet use: Yes Helmet use: always Drive intox or ride w/intox special client bus driver: No Do you feel safe at home: Yes Do you feel safe in your relationship?: Yes Female Reproductive History Menstrual Menopause type: surgical Discharge Plan Disposition Patient Disposition: Home Condition: Stable Discharge Details Clinical Impression: Cholelithiasis Primary Care Provider: Arianne Walker ED Provider: Pedro Wheat Home Meds and New Rx's Prescriptions: Continued ibuprofen 200 mg tablet 600 mg PO TID PRN (Reason: pain) Qty: 90 4RF Rx Instructions: After meals ondansetron HCl 8 mg tablet 8 mg PO TID PRN (Reason: nausea and vomiting) Qty: 60 0RF ipratropium-albuterol 0.5 mg-3 mg(2.5 mg base)/3 mL solution for nebulization 3 ml inhalation Q4H PRN (Reason: wheezing) Qty: 180 3RF Dulera 100-5 mcg/actuation HFA aerosol inhaler 2 inh inhalation BID Qty: 13 3RF omeprazole 20 mg capsule,delayed release(DR/EC) 40 mg PO DAILY Qty: 90 0RF albuterol sulfate 90 mcg/actuation HFA aerosol inhaler 2 inh inhalation Q6H PRN (Reason: shortness of breath or wheezing) Qty: 18 4RF vortioxetine 10 mg tablet 10 mg PO DAILY Qty: 90 3RF nicotine (polacrilex) 4 mg gum 4 mg buccal Q2H MDD 24 PRN (Reason: nicotine cravings) Qty: 100 4RF Rx Instructions: Weeks 1-6: 1 every 1-2hrs Weeks 7-9: 1 every 2-4hrs Weeks 10-12: 1 every 4-8hrs nicotine 21 mg/24 hr patch 24 hour 1 patch transdermal DAILY Qty: 42 0RF Rx Instructions: Apply 1 patch daily for 6 weeks nicotine 7 mg/24 hr patch 24 hour 1 patch transdermal DAILY 14 Days Qty: 14 6RF Rx Instructions: Apply 1 patch daily for 2 wks after 14mg patch promethazine 25 mg tablet 25 mg PO Q6H PRN (Reason: nausea and vomiting) Qty: 60 2RF levothyroxine 125 mcg tablet 125 mcg PO DAILY Qty: 90 0RF diazepam [Valium] 2 mg tablet 1 mg PO QHS PRN (Reason: anxiety and sleep) Qty: 14 2RF Rx Instructions: Half a tablet at bedtime IF NEEDED for anxiety and sleep sumatriptan succinate 50 mg tablet 50 mg PO ONCE PRN (Reason: migraine headache) Qty: 90 1RF Rx Instructions: Take 1 tablet at first onset of migraine headache, may repeat in 1-2hrs if still present Ondansetron Odt, 3 Tabs/Btl [Zofran Odt, 3 Tabs/Btl] 4 mg PO DISPENSE Qty: 0 0RF Discharge Instructions Instructions: Biliary Colic (ED) Additional Instructions: Please contact your primary care physician to arrange follow-up. Please follow-up with general surgery. Make dietary adjustments including no fatty foods. Return to the ER immediately for any worsening or new concerning symptoms. Referrals: [facility] [Provider Group] Arianne Walker NP [Primary Care Provider] -
--- NOTE | 2023-12-09 11:16 | NUR.NOTE ---
Referral faxed to [facility] for gallstone symptomatic, within 1 week. Nursing Note:
== END 2023-12-09 11:25 | disposition home or self-care (01) ==
PROVIDERS: Emergency Provider Student in an Organized Health Care Education/Training Program; PCP Nurse Practitioner Family
DX: Z71.2 Person consulting for explanation of examination or test findings (principal); K80.20 Calculus of gallbladder without cholecystitis without obstruction

== ENCOUNTER → 2024-03-07 09:26 | Outpatient (CLI) | payer BC, SELFPAY ==
--- NOTE | 2024-03-07 14:38 | DI.RAD_ITS ---
Exam(s) XR CHEST 2V PA LATERAL EXAM: XR CHEST 2V PA LATERAL CLINICAL HISTORY: cough, R05.9 TECHNIQUE: 2D digital imaging was performed of the chest. Two images were obtained. PA and lateral views were obtained. COMPARISON: CR,XR XR CHEST 2V PA LATERAL from 09/15/2022 FINDINGS: MEDIASTINUM: Normal. HEART: Normal. PULMONARY VASCULATURE: Normal. LUNGS: Clear. PLEURAL SPACE: No pleural effusion or pneumothorax. BONE:Within normal limits for the patient's age. OTHER FINDINGS:Normal. IMPRESSION: No acute pulmonary findings. DATA REPOSITORY: RADIATION DOSE DELIVERED:
== END ==
PROVIDERS: PCP Nurse Practitioner Family; Visit Provider Nurse Practitioner Family
DX: R05.9 Cough, unspecified (principal)
CPT/HCPCS: 71046

== ENCOUNTER → 2024-03-21 02:22 | Outpatient (CLI) | payer BC, SELFPAY ==
--- NOTE | 2024-03-21 | DI.CTLCSR_ITS ---
Exam(s) CT CHEST LUNG CANCER SCREEN EXAM: CT CHEST LUNG CANCER SCREEN CLINICAL HISTORY: SCREENING FOR LUNG CA,CURRENT SMOKER, F17.210 TECHNIQUE: Imaging Protocol: Axial computed tomography images with coronal and sagittal reformatted images were created and reviewed COMPARISON: CT CT CHEST LUNG CANCER SCREEN from 02/16/[address] CHEST PE CTA from 08/04/2023 FINDINGS: Tracheobronchial tree: Patent where visualized. Pulmonary parenchyma: No consolidation or dominant measurable mass. No architectural distortion. Mild centrilobular emphysematous changes are present. Lung Nodules: Stable 3 mm nodule in the periphery of the left lower lobe (series 3, image 3-4). Ther e are stable pulmonary nodules the lateral aspect of the right lower lobe (series 3, image 381). The largest measures 4 mm. There is a stable perifissural 4 mm nodule (series 3, image 224). There are no new pulmonary nodules. Mediastinum and [place]: Stable enlarged mediastinal lymph nodes. The esophagus is unremarkable. Thyroid gland: Unremarkable. Lymph nodes: No axillary adenopathy. Pleura: No effusion or pneumothorax. Heart: The heart is not dilated. Coronary artery calcification is present. No pericardial effusion. Aorta: Thoracic aorta non-dilated. Upper abdomen: Cholelithiasis. Soft Tissues: Unremarkable. Bones: Within normal limits. IMPRESSION: Stable pulmonary nodules. No new pulmonary nodules. Lung RADS Cat 2 - Benign Appearance / Behavior: Nodules with a very low likelihood of becoming a clin ically active cancer due to size or lack of growth Lung-RADS 1.0 CATEGORIES: Category 0 - Prior chest CT exam(s) being located for comparison. Category 1 - Annual screening in 12 months. No nodules or definitely benign nodules. Category 2 - Annual screening in 12 months. Benign appearance. Nodules with low likelihood of becomin g active cancer. Category 3 - 6-month follow-up. Probably benign. Short-term follow-up suggested. Nodules with low lik elihood of becoming active cancer. Category 4A - 3-month follow-up and CT/PET if >8 mm in size. Suspicious finding. Findings which requi re additional testing. Category 4B - Findings which require additional testing and tissue sampling. Suspicious finding. Category 4X - Category 3 or 4 nodules with additional features or imaging findings that increases the suspicion of malignancy. Modifier S- Potentially clinically significant finding. (Non lung cancer) RADIATION DOSE DELIVERED: 71.36mGy.cm Total DLP 71.36mGy.cmTotal DLP DATA REPOSITORY: All CT scans at this facility are submitted to the National Radiology Data Registry (NRDR) Dose Index Registry (DIR) with the [employer] (ACR). RADIATION OPTIMIZATION: All CT scans at this facility use at least one of these dose optimization te chniques: automated exposure control; mA and/or kV adjustment per patient size (includes targeted exa ms where dose is matched to clinical indication); or iterative reconstruction.
--- NOTE | 2024-03-21 | DI.MAMMO_ITS ---
Exam(s) MAMMO SCREENING EXAM: MAMMO SCREENING CLINICAL HISTORY: SCREENING, Z12.39 TECHNIQUE: Bilateral full field digital CC and MLO mammographic images were obtained with 3D tomosyn thesis and utilizing computer aided detection (CAD). COMPARISON: Available for comparison. FINDINGS: Masses/Architectural Distortion: None seen. There is a stable location of the biopsy clip in the left breast. Microcalcifications: No suspicious pleomorphic-type are seen. Skin Thickening/Nipple Retraction: None. IMPRESSION: 1. No significant interval change with no specific features of malignancy noted. 2. Unless there is more urgent need, screening mammography is recommended, as per [place] [employer] guidelines. BI-RADS Category 1 - Negative Breast Density - Category C - Heterogeneously dense Breast density category C or D implies that the patient has dense breast tissue. Dense breast tissue is very common and is not abnormal but dense breast tissue can make it harder to find cancer on a ma mmogram. Also, dense breast tissue may increase their breast cancer risk. This information about the result of the mammogram report was provided to the patient to raise their awareness. Use this report when you speak with the patient about their risks for breast cancer, which includes their family hist ory. At that time, you may recommend for more screening tests (Ultrasound or MRI) as they might be us eful based on their risk. A negative radiographic report should not delay biopsy if a dominant or clinically suspicious mass is present. Up to ten percent of cancers are not identified on mammography. A negative report may reinforce clinical impression. Adenosis and dense breasts may obscure an underlying neoplasm. False positive reports average 6 to 10%. Patient will receive a letter notifying them of these results.
== END ==
PROVIDERS: PCP Nurse Practitioner Family; Visit Provider Nurse Practitioner Family
DX: Z12.31 Encounter for screening mammogram for malignant neoplasm of breast (principal)
CPT/HCPCS: 71271; 77063; 77067

== ENCOUNTER 2025-02-27 03:51 | Outpatient (CLI) | payer BC, SELFPAY ==
[2025-02-27 11:13] LABS: Hemoglobin A1C 5.7 % (<5.7)
[2025-02-27 11:46] LABS: BUN 20 mg/dL (7-18); CREATININE 0.6 mg/dL (0.55-1.02); Calcium 9.8 mg/dL (8.5-10.1); Calculated LDL 171 mg/dL (<100); Chloride 106 mmol/L (98-107); Cholesterol 261 mg/dL (<200); Estimated GFR 103.33 (mL/min/1.73m2); Glucose 101 mg/dL (74-106); HDL Cholesterol 62 mg/dL (>or=50); Potassium 4.3 mmol/L (3.5-5.1); Sodium 143 mmol/L (136-145); TSH (W/Ref FT4) 0.27 uIU/mL (0.36-3.74); Triglyceride 140 mg/dL (<150)
[2025-02-27 12:14] LABS: FREE T4 1.21 ng/dL (0.76-1.46)
[2025-02-27 19:37] LABS: HIV-1/2 Ag & Ab Screen Negative (Negative)
[2025-02-27 19:42] LABS: HBs Antibody, Quant <3.1 mIU/mL (See Note); Hep B Surface Ab Negative (See Note); Hepatitis B Core Antibody Negative (Negative); Hepatitis B Surface Antigen Negative (Negative)
== END 2025-02-27 03:52 | disposition home or self-care (01) ==
PROVIDERS: PCP Nurse Practitioner Family; Visit Provider Nurse Practitioner Family
DX: E03.9 Hypothyroidism, unspecified (principal); E78.5 Hyperlipidemia, unspecified; R73.03 Prediabetes; Z11.4 Encounter for screening for human immunodeficiency virus [HIV]; Z11.59 Encounter for screening for other viral diseases
CPT/HCPCS: 36415; 80048; 80061; 86704; 86706; 87340; 87389; 83036; 84439; 84443

== ENCOUNTER 2025-03-01 01:13 | Outpatient (CLI) | payer BC, SELFPAY ==
[2025-03-01] MEDS: Inhaler, Assist Device 1 EACH MC (11:17)
[2025-03-01] MEDS: Levalbuterol HFA 15 GM INH 4 PUFF IH (11:17)
--- NOTE | 2025-03-07 10:39 | W.PFT ---
Date of service: 03/01/25 Time of Service: 09:53 Pulmonary Function Test Result Indications: Smoking Interpretation Spirometry: There is no airflow limitation. No significant bronchodilator response. Lung Volumes: Normal lung volumes Diffusion Capacity: Decreased diffusion Airway Pressure: Normal airways resistance Impression Decreased diffusion Clinical Correlation therefore is recommended.
== END 2025-03-01 01:14 | disposition home or self-care (01) ==
LOC: RT 01:13
PROVIDERS: PCP Nurse Practitioner Family; Visit Provider Nurse Practitioner Family
DX: F17.210 Nicotine dependence, cigarettes, uncomplicated (principal)
CPT/HCPCS: 94060; 94726; 94729

== ENCOUNTER 2025-04-17 02:09 | Outpatient (CLI) | payer BC, SELFPAY ==
[2025-04-17 10:11] LABS: TSH (W/Ref FT4) 0.18 uIU/mL (0.36-3.74)
[2025-04-17 10:46] LABS: FREE T4 1.18 ng/dL (0.76-1.46)
== END 2025-04-17 02:10 | disposition home or self-care (01) ==
PROVIDERS: PCP Nurse Practitioner Family; Visit Provider Family Medicine
DX: E03.9 Hypothyroidism, unspecified (principal)
CPT/HCPCS: 36415; 84439; 84443

== ENCOUNTER 2025-04-26 01:02 | Outpatient (CLI) | payer BC, SELFPAY ==
--- NOTE | 2025-04-26 12:23 | DI.MAMMO_ITS ---
Exam(s) MAMMO SCREENING EXAM: MAMMO SCREENING CLINICAL HISTORY: screening,z12.39. TECHNIQUE: Bilateral full field digital CC and MLO mammographic images were obtained with 3D tomosynthesis and utilizing computer aided detection (CAD). COMPARISON: Prior mammograms were reviewed. FINDINGS: There has been no significant change in the appearance and distribution of the fibroglandular tissue. There are no new findings in the immediate vicinity of a biopsy marker clip in the left breast. Skin mole on the undersurface of the right breast is again noted. No new significant right breast findings. There are no new spiculated masses nor malignant appearing microcalcification groups. There is no significant architectural distortion nor skin thickening-retraction. IMPRESSION: No radiographic evidence of malignancy. BI-RADS Category 1 - Negative Breast Density - Category C - The breast are heterogeneously dense, which may obscure small masses. Breast density Category C or D implies that the patient has dense breast tissue. Dense breast tissue can make it harder to find cancer on a mammogram. Dense breast tissue is also associated with an increased risk of breast cancer. This information about the result of the mammogram report was provided to the patient to raise their awareness. Use this report when you speak with the patient about their risks for breast cancer, which includes their family history. At that time, you may recommend additional screening tests (Ultrasound or MRI) as these tests may add significant information. A negative radiographic report should not delay biopsy if a dominant or clinically suspicious mass is present. Up to ten percent of cancers are not identified on mammography. A negative report may reinforce clinical impression. Adenosis and dense breasts may obscure an underlying neoplasm. False positive reports average 6 to 10%. Patient will receive a letter notifying them of these results.
== END 2025-04-26 01:22 ==
LOC: DI 01:02
PROVIDERS: PCP Nurse Practitioner Family; Visit Provider Nurse Practitioner Family
DX: Z12.31 Encounter for screening mammogram for malignant neoplasm of breast (principal); R92.333 Mammographic heterogeneous density, bilateral breasts
CPT/HCPCS: 77063; 77067